=== PATIENT | female | born 1950 | race Caucasian/White ===

== ENCOUNTER → 2018-07-25 | Outpatient (CLI) | payer MEDICARE, BC ==
--- NOTE | 2018-07-25 12:11 | MM ---
Reason for exam: additional evaluation requested from prior study. Last mammogram was performed 1 year and 10 months ago. History: Patient is postmenopausal and has history of breast cancer at age 47. Family history of breast cancer in 2 aunts. Lumpectomy of the right breast, 1999. Took antineoplastic for 4 years beginning at age 47. Physical Findings: Nurse did not find any significant physical abnormalities on exam. MG 3D Diag Mammo W/Cad RADHA Bilateral CC and MLO view(s) were taken. Prior study comparison: September 20, 2016, bilateral MG 3d diag mammo w/cad RADHA. December 17, 2013, CAD bilateral diagnostic mammogram. The breast tissue is heterogeneously dense. This may lower the sensitivity of mammography. There are benign appearing round calcifications bilaterally. No suspicious abnormality. No significant new findings when compared with previous films. These results were verbally communicated with the patient and result sheet given to the patient on 07/25/18. ASSESSMENT: Benign, BI-RAD 2 RECOMMENDATION: Routine screening mammogram of both breasts in 1 year.
== END | disposition home or self-care (01) ==
LOC: RADMAMWWP 10:22
PROVIDERS: ATTEND Family Medicine
DX: R92.8 Other abnormal and inconclusive findings on diagnostic imaging of breast (principal)
CPT/HCPCS: 77066; G0279; 77062

== ENCOUNTER 2018-09-19 09:52 | Day surgery (SDC) | payer MEDICARE, BC ==
[2018-09-17 17:28] VITALS: BMI 26.5
[~2018-09-19 09:52] MED LIST: LACTATED RINGERS 1,000 ML IV SCH; LIDOCAINE 1% 20 ML VIAL (10MG/ML) FOR IV START INTRADERMA PRN
[2018-09-19 10:33] VITALS: RESP 16; TEMP 97.5
[2018-09-19] MEDS ORDERED: ONDANSETRON 4 MG/2 ML VIAL ONE (10:43)
[2018-09-19] MEDS ORDERED: PROPOFOL 10 MG/ML 20 ML VIAL IV ONE (10:43)
[2018-09-19] MEDS ORDERED: LIDOCAINE 1% INJ 10MG/ML (20 ML MDV) ONE (10:43)
--- NOTE | 2018-09-19 10:47 | P.GSHP ---
History of Present Illness H&P Date: 09/19/18 Chief Complaint: Colon cancer screening Patient here today for colonoscopy. Last colonoscopy approximately 10 years ago. No bowel related complaints. No family history of colon cancer. Past Medical History Past Medical History: Asthma, Cancer, GERD/Reflux, Hyperlipidemia, Hypertension Additional Past Medical History / Comment(s): BREAST CA 1999, TOOK TAMOXIFEN FOR 4 YEARS. VERTIGO EPISODE 2 MO AGO, TREATED & RESOLVED. OCC CRAMPING IN LEGS. History of Any Multi-Drug Resistant Organisms: None Reported Past Surgical History: Appendectomy, Breast Surgery Additional Past Surgical History / Comment(s): BREAST BIOPSIES. EXC CYST BEHIND LT EAR X2. COLONOSCOPY Past Anesthesia/Blood Transfusion Reactions: Previous Problems w/ Anesthesia, Postoperative Nausea & Vomiting (PONV) Additional Past Anesthesia/Blood Transfusion Reaction / Comment(s): "HARD TIME COMING OUT OF ANESTHESIA." Smoking Status: Former smoker - Past Family History Mother Family Medical History: No Reported History Medications and Allergies Home Medications Medication Instructions Recorded Confirmed Type B Complex & C No.20/Folic Acid 1 mg PO DAILY 09/17/18 09/19/18 History [Nephrocaps Softgel] Calcium/Magnesium/Zinc 1 each PO DAILY 09/17/18 09/19/18 History [Cijkfzb-Wggkoqqxc-Mxdw Tablet] Cholecalciferol [Vitamin D3] 2,000 unit PO DAILY 09/17/18 09/19/18 History Lansoprazole [Prevacid] 15 mg PO DAILY 09/17/18 09/19/18 History Lisinopril [Zestril] 10 mg PO DAILY 09/17/18 09/19/18 History Lovastatin [Mevacor] 20 mg PO DAILY 09/17/18 09/19/18 History Montelukast [Singulair] 10 mg PO DAILY 09/17/18 09/19/18 History Potassium 99 mg PO DAILY 09/17/18 09/19/18 History traMADol HCL [Ultram] 50 mg PO TID PRN 09/17/18 09/19/18 History Allergies Allergy/AdvReac Type Severity Reaction Status Date / Time No Known Allergies Allergy Verified 09/19/18 10:24 Surgical - Exam Vital Signs Temp Pulse Resp BP Pulse Ox 97.5 F L 79 16 171/84 99 09/19/18 10:32 09/19/18 10:32 09/19/18 10:32 09/19/18 10:32 09/19/18 10:32 Physical exam: General: Well-developed, well-nourished HEENT: Normocephalic, sclerae nonicteric Abdomen: Nontender, nondistended Extremities: No edema Neuro: Alert and oriented Assessment and Plan (1) Colon cancer screening Narrative/Plan: Will proceed with colonoscopy at this time Current Visit: Yes Status: Acute Code(s): Z12.11 - ENCOUNTER FOR SCREENING FOR MALIGNANT NEOPLASM OF COLON SNOMED Code(s): 429494777
--- NOTE | 2018-09-19 11:04 | P.PCN ---
Date of Procedure: 09/19/18 Procedure(s) Performed: PREOPERATIVE DIAGNOSIS: Colon cancer screening POSTOPERATIVE DIAGNOSIS: Small Rectal polyp PROCEDURE: Colonoscopy with biopsy ANESTHESIA: MAC SURGEON: Martinez Mortensen M.D. SPECIMENS: Polyp ENDOSCOPIC PROCEDURE: The patient was placed on the endoscopy table in the left decubitus position. The Olympus colonoscope was inserted into the anus and passed under direct visualization to the base of the cecum. The appendiceal orifice was visualized. From that point the scope was slowly withdrawn inspecting all surfaces carefully. There were no neoplastic inflammatory or polypoid lesions throughout the cecum, ascending, transverse, descending and sigmoid colon. In the rectum a small polyp was seen. This was removed using the cold biopsy forceps. The remainder the rectum appeared normal. There is no visible diverticulosis. Digital rectal examination was normal. The patient was taken to the recovery room in stable condition per anesthesia guidelines. RECOMMENDATIONS: Await biopsies results.
[2018-09-19 11:44] VITALS: BP 169/80; PULSE 70
== END 2018-09-19 11:58 | disposition home or self-care (01) ==
LOC: ORWHC2ENDO 09:52
PROVIDERS: ATTEND Surgery
DX: Z12.11 Encounter for screening for malignant neoplasm of colon (principal); K62.1 Rectal polyp; J45.909 Unspecified asthma, uncomplicated; K21.9 Gastro-esophageal reflux disease without esophagitis; E78.5 Hyperlipidemia, unspecified; I10 Essential (primary) hypertension; Z79.899 Other long term (current) drug therapy; Z85.3 Personal history of malignant neoplasm of breast; Z87.891 Personal history of nicotine dependence
CPT/HCPCS: 88305; 45380; J2405; J2001; J2704

== ENCOUNTER → 2019-10-31 | Outpatient (CLI) | payer MEDICARE ==
--- NOTE | 2019-10-31 12:14 | XR ---
EXAMINATION TYPE: XR lumbar spine 2 or 3V DATE OF EXAM: 10/31/2019 CLINICAL HISTORY: Back pain TECHNIQUE: Frontal and lateral images of the lumbar spine are obtained. COMPARISON: None FINDINGS: There are 5 lumbar type vertebral bodies identified. The lumbar spine shows satisfactory alignment without evidence of acute fracture or dislocation. Vertebral body heights and disk space he ights are within normal limits. Multilevel facet arthropathy is seen from L3 through S1. Very small m ultilevel anterior ossified. Contour abnormality of the left transverse process of L3 may represent old healed fracture deformity. No acute fracture seen. The overlying soft tissue appears unremarkable . IMPRESSION: 1. No acute fracture or malalignment is seen in the lumbar spine. 2. Mild multilevel degenerative disc disease of the lumbar spine.
--- NOTE | 2019-10-31 12:21 | XR ---
EXAMINATION TYPE: XR Hip Bilateral Complete DATE OF EXAM: 10/31/2019 CLINICAL HISTORY: Acute on chronic back and bilateral hip pain greater on the left than right. TECHNIQUE: AP and frogleg views of the bilateral hips were obtained. COMPARISON: None. FINDINGS: There is no acute fracture/dislocation evident in either hip. The femoral acetabular joint s maintain normal alignment. However there is mild bilateral acetabular sclerosis. No cam deformity i s seen of either femoral head neck junction. Femoral heads maintain a normal rounded contour. The ov erlying soft tissue appears unremarkable. IMPRESSION: There is no acute fracture or dislocation in either hip. Mild bilateral femoroacetabular arthropathy.
== END | disposition home or self-care (01) ==
LOC: RAD 11:14
PROVIDERS: ATTEND Family Medicine
DX: M51.36 Other intervertebral disc degeneration, lumbar region (principal); M12.852 Other specific arthropathies, not elsewhere classified, left hip; M12.851 Other specific arthropathies, not elsewhere classified, right hip
CPT/HCPCS: 72100; 73521

== ENCOUNTER 2022-06-13 06:07 | Observation (INO) | payer MEDICARE ==
--- NOTE | 2022-06-12 23:42 | HP ---
HISTORY AND PHYSICAL Surgery is 06/13/2022. HISTORY OF PRESENT ILLNESS: Josefina Robins is a 71-year-old patient, seen with symptomatic right hip osteoarthritis. We discussed options for treatment. She elected to proceed with direct anterior right total hip arthroplasty. Consent obtained. Clearance was provided by Dr. Eric Cooney. PAST MEDICAL HISTORY: Hypertension and hyperlipidemia. PAST SURGICAL HISTORY: Noncontributory. DAILY MEDICATIONS: 1. Lisinopril. 2. Lovastatin. ALLERGIES: None. SOCIAL HISTORY: She denies tobacco use. PHYSICAL EVALUATION OF THE RIGHT HIP: She has diffuse tenderness about the hip girdle, limited range of motion, severe pain. Positive hip impingement sign. Straight-leg raise negative. Distal neurovascular exam is intact. RADIOGRAPHS: Radiographs of the right hip revealed severe osteoarthritic changes. IMPRESSION: 1. Right hip osteoarthritis. 2. Hypertension. 3. Hyperlipidemia. PLAN: Direct anterior right total hip arthroplasty. MMODL / IJN: [id number] /
[~2022-06-13 06:07] MED LIST changes: +ACETAMINOPHEN TAB 500 MG TAB PO PRN; -LACTATED RINGERS 1,000 ML IV SCH; -LIDOCAINE 1% 20 ML VIAL (10MG/ML) FOR IV START INTRADERMA PRN; +MELOXICAM 7.5 MG TAB PO PRN; +TRANEXAMIC ACID IN NACL,ISO-OS 1,000 MG in SALINE 1 100ML.BAG IVPB PRN
[2022-06-13] MEDS ORDERED: DEXAMETHASONE SOD PHOSPHATE 4 MG/ML 1 ML VIAL IV ONE (06:10)
[2022-06-13] MEDS ORDERED: ONDANSETRON 4 MG/2 ML VIAL IVP ONE (06:10)
[2022-06-13] MEDS: LACTATED RINGERS 1,000 ML IV SCH ×3 (06:47→21:36)
[2022-06-13] MEDS ORDERED: MIDAZOLAM 2 MG/2 ML VIAL IV ONE (07:00)
[2022-06-13] MEDS ORDERED: DEXAMETHASONE SOD PHOSPHATE 4 MG/ML 1 ML VIAL ONE (07:23)
[2022-06-13] MEDS ORDERED: PHENYLEPHRINE-0.9% NACL SYG 1,000 MCG/10 ML SYRINGE ONE (07:23)
[2022-06-13] MEDS ORDERED: TRANEXAMIC ACID IN NACL,ISO-OS 1,000 MG/100 ML BAG ONE (07:23)
[2022-06-13] MEDS ORDERED: SODIUM CHLORIDE 0.9% (PF) 10 ML VIAL ONE (07:23)
[2022-06-13] MEDS ORDERED: ROPIVACAINE 5 MG/ML 30 ML VIAL ONE (07:23)
[2022-06-13] MEDS ORDERED: PROPOFOL 10 MG/ML 20 ML VIAL IV ONE (07:23)
[2022-06-13] MEDS ORDERED: MIDAZOLAM 2 MG/2 ML VIAL ONE (07:23)
[2022-06-13] MEDS ORDERED: ceFAZolin 1,000 MG in SODIUM CHLORIDE 0.9% 1,000 ML IRRIGATION ONE (08:00)
[2022-06-13] MEDS ORDERED: BUPIVACAIN-EPI 0.25%-1:200,000 30 ML VIAL SQ ONE (08:03)
[2022-06-13] MEDS ORDERED: LACTATED RINGERS 1,000 ML IV ONE (08:24)
--- NOTE | 2022-06-13 08:49 | P.ANPRN ---
Procedure Note - Anesthesia - Epidural/Spinal Spinal Time Out Performed: Yes Date of Procedure: 06/13/22 Procedure Start Time: 07:32 Procedure Stop Time: 07:37 Location of Patient: OR Sedation Type: Sedate with meaningful contact maintained Preparation: Sterile Prep Position: Sitting Needle Guage: 25 Injectate: Other (bupivacaine 0.75 % 1.2 ml) Blood Aspirated: No Pain Paresthesia on Injection Noted: No Events: Uneventful and Well Tolerated
--- NOTE | 2022-06-13 09:00 | FL ---
Intraoperative/procedural fluoroscopic services were provided. Total fluoroscopy time is 28 seconds w ith a total of 2 submitted images to PACS. Please see the operative/procedural note for further detai ls.
[2022-06-13] MEDS ORDERED: NALOXONE 0.4 MG/ML 1 ML VIAL IV PRN (09:21)
[2022-06-13] MEDS ORDERED: HYDROcodone/APAP 5-325MG 1 EACH TAB PO PRN (09:21)
[2022-06-13] MEDS ORDERED: HYDROmorphone 0.5 MG/0.5 ML SYRINGE IVP PRN ×2 (09:21)
[2022-06-13] MEDS ORDERED: ONDANSETRON 4 MG/2 ML VIAL IVP PRN (09:21)
--- NOTE | 2022-06-13 09:21 | P.OP ---
Date of Procedure: 06/13/22 Preoperative Diagnosis: Right hip osteoarthritis Postoperative Diagnosis: Right hip osteoarthritis Procedure(s) Performed: Direct anterior right total hip arthroplasty Implants: 1. Depuy Corail standard collar size 10 press-fit femoral stem 2. Depuy pinnacle 52 mm press-fit acetabular shell 3. Depuy pinnacle neutral polyethylene acetabular liner 36 mm ID 52 mm OD 4. Biolox delta ceramic femoral head +1.5 36 mm Anesthesia: regional (Erector spinae block), spinal Surgeon: Dajuan Rose Radioisotope Technician #1: Sebastian Akhtar Estimated Blood Loss (ml): 85 Pathology: other (femoral head) Condition: stable Disposition: PACU Indications for Procedure: 71-year-old patient seen with symptomatic right hip osteoarthritis. After having treatment options discussed, she elected to proceed with direct anterior right total hip arthroplasty. Operative Findings: see description of procedure Description of Procedure: The patient was taken to the operative suite. Patient underwent a spinal anesthetic by the department of anesthesia. Patient was then transferred to the [place] table. Patient was given preoperative IV antibiotics and TXA. Both lower extremities were placed in standard leg spars. The hip was then prepped and draped in the normal sterile orthopedic fashion. A standard anterior incision was made beginning 3 cm lateral and 1 cm distal to the ASIS extending 10 cm. Dissection was then carried down through the subcutaneous soft tissues down to the fascia overlying the tensor fascia jacklyn. An incision was now made through the fascia. Careful dissection was taken down exposing the tensor fascia jacklyn muscle. A Cobra retractor was now placed along the medial femoral neck and a second one along the lateral femoral neck. The venous circumflex vessels were now identified, cauterized and clipped. We identified the anterior hip capsule. An incision was made through the hip capsule along the lateral border. I performed a partial anterior capsulectomy. Retractors were now placed around the femoral neck itself. A femoral neck cut was now made with a sagittal saw. It was completed with an osteotome at the lateral neck area. The femoral head was now removed without difficulty. The extremity was now rotated to 60 of external rotation. It was locked in position. Residual labrum was now debrided out. Serial reaming was performed of the acetabulum while Moshe SOUTH assisted holding an anterior retractor for exposure. Once we reached the appropriate size and a trial was position and fit nicely. The appropriate size was now chosen opened and made available. It was introduced into the acetabulum without difficulty. The C-arm/fluoroscopy was now brought into the operative field. We made sure we had a true AP pelvic view. We now under direct C- arm/fluoroscopy introduced into the acetabular component with appropriate version and inclination. I held the cup in appropriate position well Moshe SOUTH used a mallet to seat the acetabular component. I noted the component now to be well seated and stable. Acetabular cup introduce her was removed. The C-arm was pulled back. An appropriate liner was introduced and clicked into position. It was felt to be stable. At this point retractors were removed. The extremity was now placed into 140 external rotation with no traction. The leg was now dropped to the ground and adducted. Appropriate retractors were now positioned along the proximal femur. We also placed our femoral look into position. Additional capsular releasing was performed to gain access to the proximal femur. We now used a box osteotome. A canal finder was now utilized. Serial broaching was now performed with the assistance of Moshe SOUTH tapping the broaches down with a mallet while held the broach in appropriate rotation and position. This was done until we reached the appropriate size with good overall rotational stability. Appropriate calcar planing was performed. A trial head/neck was placed into position. The hip was now reduced. The C- arm/fluoroscopy was brought back into the operative field. I obtained an AP pelvis was demonstrated adequate leg length alignment. The trial components appeared adequately position and sized. The C-arm/fluoroscopy was pulled back. Retractors were repositioned and the hip was dislocated. The leg was again taken down to the ground and adducted. Appropriate retractors were repositioned as well as the femoral hook. All trial components were removed. The femoral implant was opened along with the femoral head. The femoral implant was introduced on the appropriate handle into our pre-broached area. I held the component position well Moshe SOUTH used a mallet to seat the femoral component. The femoral component was now noted to be well seated and stable.. The femoral head was introduced with good positioning and fixation noted. Retractors were now removed. The hip was now reduced. There appeared be good positioning of the hip confirmed on intraoperative fluoroscopy. Spot films were obtained to document this. A second gram of TXA was given. The deep and superficial soft tissues were infiltrated with local analgesic. Bipolar cautery had been utilized intermittently through the procedure for hemostasis. The wound was irrigated copiously with pulse lavage mechanical irrigation. The fascia was repaired with Vicryl suture. The subcutaneous soft tissues were repaired in layers with Vicryl suture. The skin was approximated with pernio/Dermabond. Sterile dressings were applied. Patient was then awakened, transferred to a bed and taken to recovery in stable condition. Moshe SOUTH assisted with the complex procedure.
[2022-06-13] MEDS: HYDROmorphone 0.5 MG/0.5 ML SYRINGE IVP PRN ×6 (09:51→21:34)
[2022-06-13] MEDS: HYDROcodone/APAP 7.5-325MG 1 EACH TAB PO PRN ×3 (11:18→21:34)
[2022-06-13] MEDS: OXYBUTYNIN XL 5 MG TAB.ER.24 PO SCH (13:42)
[2022-06-13] MEDS: PANTOPRAZOLE 40 MG TABLET PO SCH (13:42)
[2022-06-13] MEDS ORDERED: MONTELUKAST 10 MG TAB PO SCH (21:00)
[2022-06-13] MEDS ORDERED: SENNOSIDES-DOCUSATE SODIUM 1 EACH TAB PO SCH (21:00)
--- NOTE | 2022-06-13 21:08 | P.ANPRN ---
Procedure Note - Anesthesia - Nerve Block Performed Right Erector Spinae Single Time Out Performed: Yes Date of Procedure: 06/13/22 Procedure Start Time: 07:00 Procedure Stop Time: 07:05 Location of Patient: PreOp Indication: Acute Post-Operative Pain, Requested by Surgeon Sedation Type: Sedate with meaningful contact maintained Preparation: Sterile Prep Position: Prone Needle Types: Pajunk Needle Gauge: 21 Ultrasound used to visualize needle placement: Yes Ultrasound used to observe medication spread: Yes Blood Aspirated: No Pain Paresthesia on Injection Noted: No Resistance on Injection: Normal Image Stored and Saved: Yes Events: Uneventful and Well Tolerated (ropi .5% 15cc plus dexamethasone 4mg plus ns 10cc given at L1)
[2022-06-14] MEDS: HYDROmorphone 0.5 MG/0.5 ML SYRINGE IVP PRN (03:22)
[2022-06-14] MEDS: HYDROcodone/APAP 7.5-325MG 1 EACH TAB PO PRN ×3 (03:23→13:47)
[2022-06-14] MEDS: LACTATED RINGERS 1,000 ML IV SCH ×2 (06:22→08:36)
[2022-06-14] MEDS: PANTOPRAZOLE 40 MG TABLET PO SCH (08:35)
[2022-06-14] MEDS: OXYBUTYNIN XL 5 MG TAB.ER.24 PO SCH (08:35)
[2022-06-14 08:45] VITALS: RESP 18
[2022-06-14 08:52] LABS: Basophils # (A) 0.01 X 10*3/uL (0.00-0.10); Basophils % (A) 0.1 %; Eosinophils # (A) 0 X 10*3/uL (0.04-0.35); Eosinophils % (A) 0 %; HCT 26.2 % (37.2-46.3); HGB 8.8 g/dL (12.0-15.0); Immature Grans, Automated 0.4 %; Lymphocytes # (A) 1.19 X 10*3/uL (0.90-5.00); Lymphocytes % (A) 8.6 %; MCH 29.1 pg (27.0-32.0); MCHC 33.6 g/dL (32.0-37.0); MCV 86.8 fL (80.0-97.0); Mean Platelet Volume 10.6 fL (9.5-12.2); Monocytes # (A) 1.08 X 10*3/uL (0.20-1.00); Monocytes % (A) 7.8 %; NRBC Per 100 WBC 0 /100 WBCS (0.0-0.0); Neutrophils # (A) 11.55 X 10*3/uL (1.80-7.70); Neutrophils % (A) 83.1 %; Platelet Count 214 X 10*3/uL (140-440); RBC 3.02 X 10*6/uL (4.10-5.20); WBC 13.89 X 10*3/uL (4.50-10.00)
[2022-06-14] MEDS ORDERED: ENOXAPARIN 40 MG/0.4 ML SYRINGE SQ SCH (09:00)
[2022-06-14] MEDS ORDERED: lisinopriL 10 MG TAB PO SCH (09:00)
[2022-06-14 09:10] LABS: African American GFR (CKD) 87.2 (60.0-200.0); BUN/Creat Ratio 17.5 Ratio (12.00-20.00); Calcium 8.8 mg/dL (8.7-10.3); Non-African American GFR(CKD) 75.2 (60.0-200.0); Potassium 4.4 mmol/L (3.5-5.5)
--- NOTE | 2022-06-14 10:30 | P.DS ---
Providers Date of admission: 06/14/22 07:45 Expected date of discharge: 06/14/22 Attending physician: Dajuan Rose Consults: 06/13/22 09:21 Consult Physician Routine Consulting Provider: Eric Cooney Reason/Comments: Medical management Do you want consulting provider notified?: Yes Primary care physician: Eric Cooney Hospital Course: Date of admission: 06/13/2022 Date of discharge: 06/14/2022 Admission diagnosis: Right hip osteoarthritis Discharge diagnosis: Same Attending physician: Dr. Rose Surgical procedures: Right total hip arthroplasty Brief history: Patient is a 71-year-old female with a history of progressive primary right hip osteoarthritis. At this point patient has failed conservative treatment measures and has opted to proceed with a elective right total hip arthroplasty. Hospital course: Details of patient's surgery can be found in operative report. Patient tolerated the procedure well and was subsequently transported to orthopedic floor. Patient's orthopeidc and medical care was provided daily. Patient had daily laboratory tests performed for evaluation of overall blood counts. Patient had daily physical therapy to include strengthening range of motion as well as education with walker ambulation. Patient was treated with Lovenox for their postoperative DVT prophylaxis during their inpatient stay. Patient was noted to have a relatively uneventful postoperative course. Patient reported satisfactory pain control with oral pain medications by postoperative day 1. Patient showed satisfactory progress with physical therapy. Patient moved steadily through the program and had no difficulty meeting the goals by postoperative day 1. Given patient's otherwise satisfactory course and having met physical therapy goals, plan is to discharge patient home with health services on postoperative day 1. Discharge condition/disposition: Patient will be discharged home with health se rvices in stable condition. Discharge medications: Instructions are given on resumption of patient's normal daily medications per primary care recommendation, in addition patient will be prescribed Hematite; Colace; Eliquis 2.5 mg BID x 2 weeks. Orthopedic Discharge Instructions: 1. Wound care and infection precautions, keep incision dry and covered while showering, no lotions, creams, moisturizers. No soaking, pools, hot tubs. Do not scrub over incision. 2. Weight-bear as tolerated with walker / cane until follow-up. 3. Ice and elevate when necessary. Do not exceed 20 minutes per hour with ice pack. 4. Utilize compression sleeve until seen at first follow up appointment. 5. Pain meds and anticoagulants per prescription. 6. Pain medication has potential to cause constipation. Increase oral fluid and fiber intake. Contact primary care provider if you have not had a bowel movement within 48 hours after discharge. 7. No anti-inflammatory medication until discussed at first post operative visit, this including Motrin, Aleve, Mobic, Diclofenac. 8. Follow up in office at 2 weeks postop with Moshe Akhtar PA-C / Javi Diaz PA-C 9. Follow up with your primary care doctor 7-10 days after discharge. 10. Contact [facility] with any questions, . Keep incision clean, dry, intact. While showering, cover dressing with Saran wrap. Silver foam dressing may be removed in 7 days, 06/20/2022 Medications: Hematite 5 mg/325 mg 12 every 6 hours; Colace; Eliquis 2.5 mg BID x 2 weeks; Ferrous sulfate 325 mg daily x 2 weeks Assessment: Right hip osteoarthritis Procedures: Right total hip arthroplasty Patient Condition at Discharge: Good Plan - Discharge Summary Discharge Rx Participant: Yes New Discharge Prescriptions: New Apixaban [Eliquis] 2.5 mg PO BID #60 tab HYDROcodone/APAP 5-325MG [Hematite 5-325] 1 - 2 tab PO Q6HR PRN #36 tab PRN Reason: Pain Docusate [Colace] 100 mg PO DAILY #30 capsule Ferrous Sulfate [Iron] 325 mg PO DAILY #14 tablet No Action Lansoprazole [Prevacid] 15 mg PO DAILY traMADol HCL [Ultram] 50 mg PO TID PRN PRN Reason: Pain Montelukast [Singulair] 10 mg PO DAILY Lovastatin [Mevacor] 20 mg PO DAILY lisinopriL [Zestril] 10 mg PO DAILY Multivit-Min/Folic Acid/Biotin [Hair, Skin and Nails Softgel] 133.3 mcg PO DAILY Oxybutynin Chloride [Ditropan XL] 5 mg PO DAILY Discharge Medication List Lansoprazole [Prevacid] 15 mg PO DAILY 09/17/18 [History] Lovastatin [Mevacor] 20 mg PO DAILY 09/17/18 [History] Montelukast [Singulair] 10 mg PO DAILY 09/17/18 [History] lisinopriL [Zestril] 10 mg PO DAILY 09/17/18 [History] traMADol HCL [Ultram] 50 mg PO TID PRN 09/17/18 [History] Multivit-Min/Folic Acid/Biotin [Hair, Skin and Nails Softgel] 133.3 mcg PO DAILY 06/10/22 [History] Oxybutynin Chloride [Ditropan XL] 5 mg PO DAILY 06/10/22 [History] Apixaban [Eliquis] 2.5 mg PO BID #60 tab 06/14/22 [Rx] Docusate [Colace] 100 mg PO DAILY #30 capsule 06/14/22 [Rx] Ferrous Sulfate [Iron] 325 mg PO DAILY #14 tablet 06/14/22 [Rx] HYDROcodone/APAP 5-325MG [Hematite 5-325] 1 - 2 tab PO Q6HR PRN #36 tab 06/14/22 [Rx] Follow up Appointment(s)/Referral(s): [facility], [NON-STAFF] - As Needed Eric Cooney DO [Primary Care Provider] - 1 Week [facility] [NON-STAFF] - As Needed (walker) Sebastian Akhtar PAC [PHYSICIAN INFORMATICS SPECIALIST] - 2 Weeks Patient Instructions/Handouts: Total Hip Replacement (DC) Activity/Diet/Wound Care/Special Instructions: Orthopedic Discharge Instructions: 1. Wound care and infection precautions, keep incision dry and covered while showering, no lotions, creams, moisturizers. No soaking, pools, hot tubs. Do not scrub over incision. 2. Weight-bear as tolerated with walker / cane until follow-up. 3. Ice and elevate when necessary. Do not exceed 20 minutes per hour with ice pack. 4. Utilize compression sleeve until seen at first follow up appointment. 5. Pain meds and anticoagulants per prescription. 6. Pain medication has potential to cause constipation. Increase oral fluid and fiber intake. Contact primary care provider if you have not had a bowel movement within 48 hours after discharge. 7. No anti-inflammatory medication until discussed at first post operative visit, this including Motrin, Aleve, Mobic, Diclofenac. 8. Follow up in office at 2 weeks postop with Moshe Akhtar PA-C / Javi Diaz PA-C 9. Follow up with your primary care doctor 7-10 days after discharge. 10. Contact [facility] with any questions, . Keep incision clean, dry, intact. While showering, cover dressing with Saran wrap. Silver foam dressing may be removed in 7 days, 06/20/2022 Medications: Hematite 5 mg/325 mg 12 every 6 hours; Colace; Eliquis 2.5 mg BID x 2 weeks; Ferrous Sulfate 325 mg daily x 2 weeks Discharge Disposition: HOME WITH HOME HEALTH SERVICES
--- NOTE | 2022-06-14 10:40 | P.PN ---
Subjective Progress Note Date: 06/14/22 Principal diagnosis: Right hip osteoarthritis Patient was seen at bedside this morning lying in semirecumbent position. Patient says she did work with physical therapy this morning. Patient says she was able to walk around the room with a walker and walk up and down steps. Jovanna diaz says she does not have a walker for home. Patient says she has not had bowel movement yet, however, patient says she has been passing gas. Patient says she has urinated several times since surgery yesterday. Patient denies chest pain, fever, shortness of breath, nausea, vomiting, change in vision, loss of bowel/bladder control. Objective - Vital Signs Vital signs: Vital Signs Temp 98.2 F 06/14/22 08:00 Pulse 93 06/14/22 08:00 Resp 18 06/14/22 08:00 BP 125/70 06/14/22 08:00 Pulse Ox 97 06/14/22 08:00 FiO2 Intake & Output 06/13/22 06/14/22 06/14/22 18:59 06:59 18:59 Intake Total 1501 1850 296 Output Total 85 1075 Balance 1416 775 296 Weight 61.6 kg Intake: IV 1501 Intake, IV Titration 930 Amount Lactated Ringers 1,000 ml 880 @ 80 mls/hr IV .[id number] [facility] Rx#:[id number] ceFAZolin 2 gm In Sodium 50 Chloride 0.9% 50 ml @ 100 mls/hr IVPB Q8H [facility] Rx#: [id number] Oral 920 296 Output: Urine 1075 Estimated Blood Loss 85 Other: Voiding Method Bedside Commode Toilet # Voids 2 1 - Exam Right hip: Incision is clean, dry, and intact. The silver foam dressing is in good condition. There is minimal soft tissue swelling and ecchymosis surrounding the medial and lateral aspects of the incision. Calf is soft, no tenderness with palpation. Plantar flexion, dorsiflexion, EHL, FHL are intact. Sensory exam to light touch throughout the extremity is intact, dorsal pedis pulses 2+. - Labs CBC & Chem 7: 06/14/22 05:41 06/14/22 05:41 Labs: Abnormal Lab Results - Last 24 Hours (Table) 06/14/22 06/14/22 Range/Units 05:41 05:41 WBC 13.89 H (4.50-10.00) X 10*3/uL RBC 3.02 L (4.10-5.20) X 10*6/uL Hgb 8.8 L (12.0-15.0) g/dL Hct 26.2 L (37.2-46.3) % Immature Gran # 0.06 H (0.00-0.04) X 10*3/uL Neutrophils # 11.55 H (1.80-7.70) X 10*3/uL Monocytes # 1.08 H (0.20-1.00) X 10*3/uL Eosinophils # 0 L (0.04-0.35) X 10*3/uL Anion Gap 9.00 L (10.00-18.00) mmol/L Glucose 133 H (70-110) mg/dL Assessment and Plan Assessment: 1. Right hip osteoarthritis Postoperative day 1 status post right total hip arthroplasty Plan: 1. Right hip osteoarthritis - right total hip arthroplasty performed yesterday, 06/13/2022. Patient stable biceps sprain. Prescription for walker was signed. Discharge home today with health services. 2. Appreciate medical management 3. Pain management - [place] 4. DVT prophylaxis - Eliquis 2.5 mg BID x 2 week once home 5. GI prophylaxis - Colace once home 6. PT/OT - weightbearing as tolerated with walker 7. Encourage incentive spirometer use 8. Discharge planning - home today with health services Time with Patient: Less than 30
--- NOTE | 2022-06-14 12:43 | P.CONS ---
History of Present Illness - Reason for Consult Consult date: 06/14/22 medical management of hypertension Requesting physician: Dajuan Rose - Chief Complaint Right hip osteoarthritis, status post surgical repair - History of Present Illness This is a pleasant 71-year-old female with past medical history of asthma, former nicotine dependence, occasional marijuana use, history of breast cancer, gastroesophageal reflux disease,PONV, hypertension, hyperlipidemia, osteoarthritis and multiple other medical issues presenting for elective anterior right total hip arthroplasty secondary to reported progressive symptomatic right hip osteoarthritis. Status post tract anterior right total hip arthroplasty, tolerated procedure well. Sitting up at bedside, reporting positive pain, participating with physical therapy. Denies chest pain, palpitations or shortness of breath. Denies cough congestion. Incentive spirometer up to 1999. Denies lightheadedness, dizziness or focal deficits. Denies nausea vomiting or diarrhea. No abdominal pain. Passing flatus. Afebrile, WBC 13.89. Electrolytes, renal function stable. Glucose 1:33. Vital signs stable, maintaining O2 sats in the high 90s on room air. Review of Systems ROS Statement: Those systems with pertinent positive or pertinent negative responses have been documented in the HPI. ROS Other: All systems not noted in ROS Statement are negative. Past Medical History Past Medical History: Asthma, Cancer, GERD/Reflux, Hyperlipidemia, Hypertension, Osteoarthritis (OA), Pneumonia Additional Past Medical History / Comment(s): hx. breast cancer 1999-had chemo, urinary frequency, bilat cataracts. History of Any Multi-Drug Resistant Organisms: None Reported Past Surgical History: Appendectomy, Breast Surgery Additional Past Surgical History / Comment(s): right side lumpectomy, lump removed from left side of neck x2, right JC (06/13/22) Past Anesthesia/Blood Transfusion Reactions: Postoperative Nausea & Vomiting (PONV) Additional Past Anesthesia/Blood Transfusion Reaction / Comm: hard time waking up Past Psychological History: No Psychological Hx Reported Smoking Status: Former smoker Past Alcohol Use History: Occasional Additional Past Alcohol Use History / Comment(s): quit smoking in her 40's, started @age of 11, didn't smoke daily Past Drug Use History: Marijuana Additional Drug Use History / Comment(s): occasional use - Past Family History Mother Family Medical History: No Reported History Medications and Allergies Home Medications Medication Instructions Recorded Confirmed Type Lansoprazole [Prevacid] 15 mg PO DAILY 09/17/18 06/10/22 History Lovastatin [Mevacor] 20 mg PO DAILY 09/17/18 06/10/22 History Montelukast [Singulair] 10 mg PO DAILY 09/17/18 06/10/22 History lisinopriL [Zestril] 10 mg PO DAILY 09/17/18 06/10/22 History traMADol HCL [Ultram] 50 mg PO TID PRN 09/17/18 06/10/22 History Multivit-Min/Folic Acid/Biotin 133.3 mcg PO DAILY 06/10/22 06/10/22 History [Hair, Skin and Nails Softgel] Oxybutynin Chloride [Ditropan XL] 5 mg PO DAILY 06/10/22 06/10/22 History Apixaban [Eliquis] 2.5 mg PO BID #60 tab 06/14/22 Rx Docusate [Colace] 100 mg PO DAILY #30 capsule 06/14/22 Rx Ferrous Sulfate [Iron] 325 mg PO DAILY #14 tablet 06/14/22 Rx HYDROcodone/APAP 5-325MG [[place] 1 - 2 tab PO Q6HR PRN #36 tab 06/14/22 Rx 5-325] Allergies Allergy/AdvReac Type Severity Reaction Status Date / Time No Known Allergies Allergy Verified 06/13/22 06:20 Physical Exam Vitals: Vital Signs Temp Pulse Pulse Resp BP Pulse Ox 06/14/22 08:00 98.2 F 93 18 125/70 97 06/14/22 02:51 98.5 F 74 15 124/67 96 06/13/22 20:00 98.2 F 70 16 144/73 97 06/13/22 14:00 96.7 F L 62 17 120/79 93 L 06/13/22 12:46 71 116/64 94 L 06/13/22 12:32 53 L 123/60 96 06/13/22 12:16 67 143/85 99 Intake and Output 06/13/22 06/14/22 06/14/22 22:59 06:59 14:59 Intake Total 120 1730 296 Output Total 225 850 Balance -105 880 296 Intake: Intake, IV Titration 930 Amount Lactated Ringers 1,000 ml 880 @ 80 mls/hr IV .[id number] [facility] Rx#:[id number] ceFAZolin 2 gm In Sodium 50 Chloride 0.9% 50 ml @ 100 mls/hr IVPB Q8H [facility] Rx#: [id number] Oral 120 800 296 Output: Urine 225 850 Other: Voiding Method Toilet # Voids 2 1 PHYSICAL EXAM: VITAL SIGNS: [As above] GENERAL: Sitting up in bed, no acute distress HEENT: Conjunctivae normal. eyes normal. MMM. NECK: Supple,No JVD. No thyroid enlargement. No LNs CARDIOVASCULAR: S1, S2 regular. No murmur RESPIRATION: Unlabored, Breath sounds diminished in the bases. No rhonchi or crackles. No bronchial breathing. ABDOMEN: Soft, nondistended, nontender . No guarding. no masses palpable. No ascites, No hepatosplenomegaly.Bowel sounds heard. LEGS: Right lower extremity, anterior dressing, clean dry and intact, minimal edema/ecchymosis. No clubbing, no cyanosis.No calf tenderness. Positive DP pulse. PSYCHIATRY: Alert and oriented X3, mood and affect normal. NERVOUS SYSTEM: Cranial N 2-12 grossly normal. Moves all 4 limbs. No focal deficits. Strength and sensation grossly intact. Skin: Warm and dry, no rash Results CBC & Chem 7: 06/14/22 05:41 06/14/22 05:41 Labs: Abnormal Lab Results - Last 24 Hours (Table) 06/14/22 06/14/22 Range/Units 05:41 05:41 WBC 13.89 H (4.50-10.00) X 10*3/uL RBC 3.02 L (4.10-5.20) X 10*6/uL Hgb 8.8 L (12.0-15.0) g/dL Hct 26.2 L (37.2-46.3) % Immature Gran # 0.06 H (0.00-0.04) X 10*3/uL Neutrophils # 11.55 H (1.80-7.70) X 10*3/uL Monocytes # 1.08 H (0.20-1.00) X 10*3/uL Eosinophils # 0 L (0.04-0.35) X 10*3/uL Anion Gap 9.00 L (10.00-18.00) mmol/L Glucose 133 H (70-110) mg/dL Assessment and Plan Assessment: Symptomatic right hip osteoarthritis, status post tract anterior right total hip arthroplasty PONV, history of History of chronic ALLERGY induced asthma, stable Gastroesophageal reflux disease, on PPI Borderline new-onset diabetes mellitus, hemoglobin A1c 6.1 in 12/07, further diabetic education/ recommendations as PCP at follow-up visit Hypertension Hyperlipidemia Former nicotine dependence History of breast cancer Plan: Continue on current medication regime ,monitoring and symptomatic treatment. Aggressive pulmonary toileting with incentive spirometer reinforced. Home meds reviewed and resumed accordingly. Currently on Lovenox for DVT prophylaxis and PPI for GI prophylaxis. Pain management as per primary. PT. Follow-up with PCP in one week. Thank you for the consult, Dr. Rose. The impression and plan of care has been dictated as directed. : I performed a history and examination of this patient, discussed the same with the dictator. I agree with the dictator's note ,documented as a scribe. Any additional findings or plans will be noted.
[2022-06-14 13:23] VITALS: BP 147/68; PULSE 84; TEMP 98.4
== END 2022-06-14 14:53 | disposition home health service (06) ==
LOC: OR 06:07 → 4SSUR 09:15 → OR 06-14 07:45 → 4SSUR 06-14 07:45
PROVIDERS: ADMIT Orthopaedic Surgery; ATTEND Orthopaedic Surgery
DX: M16.11 Unilateral primary osteoarthritis, right hip (principal); I10 Essential (primary) hypertension; E78.5 Hyperlipidemia, unspecified; K21.9 Gastro-esophageal reflux disease without esophagitis; J45.909 Unspecified asthma, uncomplicated; R35.0 Frequency of micturition; R73.03 Prediabetes; Z85.3 Personal history of malignant neoplasm of breast; Z98.890 Other specified postprocedural states; Z87.891 Personal history of nicotine dependence; Z87.01 Personal history of pneumonia (recurrent); Z90.49 Acquired absence of other specified parts of digestive tract; Z92.21 Personal history of antineoplastic chemotherapy; Z98.42 Cataract extraction status, left eye; Z98.41 Cataract extraction status, right eye; Z79.899 Other long term (current) drug therapy
CPT/HCPCS: 97116; 97161; 97530; 97535; 97165; 64999; 76942; 86900; 86901; 80048; 85025; 86850; 88300; 73501; 27130; G0378; C1776; J2250; J1100; J0690 ×2; J2405; J1650; J2795; J2370; J2704; J1170 ×2

== ENCOUNTER 2023-01-04 16:59 | Observation (INO) | payer MEDICARE ==
--- NOTE | 2023-01-04 17:21 | ED ---
GI Bleed HPI <Ondina Schulte - Last Filed: 01/04/23 17:15> <Nola De La Garza - Last Filed: 01/04/23 22:55> - General Chief complaint: GI Bleed Stated complaint: GI bleed - History of Present Illness Initial comments: Patient is a 72 years old female presenting to the ER with complaints of having diarrhea and vomiting which began yesterday then noticed bright red blood in her stool today with continued diarrhea. She denies vomiting today. She reports abdominal cramping but no abdominal tenderness. She has generalized malaise. She reports fevers and chills yesterday with low grade but denies any today. She denies any chest pain, shortness of breath, dysuria, weakness or other complaints or concerns at this time. (Ondina Schulte) I agree with the above HPI. She reports bright red streaking of blood in her stoo. Patient does not use blood thinners. Denies history of GI bleed. Last colonoscopy was 2 years ago which patient states was normal. (Nola De La Garza) - Related Data Home Medications Medication Instructions Recorded Confirmed Lovastatin [Mevacor] 20 mg PO DAILY 09/17/18 01/04/23 Montelukast [Singulair] 10 mg PO DAILY 09/17/18 01/04/23 lisinopriL [Zestril] 10 mg PO DAILY 09/17/18 01/04/23 traMADol HCL [Ultram] 50 mg PO BID 09/17/18 01/04/23 Carboxymethylcellulose Sodium 1 drop BOTH EYES DAILY 01/04/23 01/04/23 [Refresh Tears] Oxybutynin Chloride [Ditropan] 5 mg PO DAILY 01/04/23 01/04/23 Vitamin C/Biotin [Hair, Skin and 1 tab PO DAILY 01/04/23 01/04/23 Nails Chew] Allergies Allergy/AdvReac Type Severity Reaction Status Date / Time No Known Allergies Allergy Verified 01/04/23 20:02 Review of Systems ROS Other: All systems not noted in ROS Statement are negative. <Ondina Schulte - Last Filed: 01/04/23 17:15> ROS Other: All systems not noted in ROS Statement are negative. <Nola De La Garza - Last Filed: 01/04/23 22:55> ROS Statement: Those systems with pertinent positive or pertinent negative responses have been documented in the HPI. Past Medical History Past Medical History: Asthma, Cancer, GERD/Reflux, Hyperlipidemia, Hypertension, Osteoarthritis (OA), Pneumonia Additional Past Medical History / Comment(s): hx. breast cancer 1999-had chemo, urinary frequency, bilat cataracts. History of Any Multi-Drug Resistant Organisms: None Reported Past Surgical History: Appendectomy, Breast Surgery Additional Past Surgical History / Comment(s): right side lumpectomy, lump removed from left side of neck x2, right JC (06/13/22) Past Anesthesia/Blood Transfusion Reactions: Postoperative Nausea & Vomiting (PONV) Additional Past Anesthesia/Blood Transfusion Reaction / Comment(s): hard time waking up Past Psychological History: No Psychological Hx Reported Smoking Status: Former smoker Past Alcohol Use History: Occasional Additional Past Alcohol Use History / Comment(s): quit smoking in her 40's, started @age of 11, didn't smoke daily Past Drug Use History: Marijuana Additional Drug Use History / Comment(s): occasional use - Past Family History Mother Family Medical History: No Reported History <Ondina Schulte - Last Filed: 01/04/23 17:15> General Exam <Ondina Schulte - Last Filed: 01/04/23 17:15> General appearance: alert, in no apparent distress Respiratory exam: Present: normal lung sounds bilaterally. Absent: respiratory distress, wheezes, rales, rhonchi, stridor Cardiovascular Exam: Present: regular rate, normal rhythm, normal heart sounds. Absent: systolic murmur, diastolic murmur, rubs, gallop, clicks GI/Abdominal exam: Present: soft, tenderness (LLQ), normal bowel sounds. Absent: distended, guarding, rebound, rigid Rectal exam: Present: normal rectal tone, heme (+) stool. Absent: hemorrhoids Neurological exam: Present: alert, oriented X3, CN II-XII intact Psychiatric exam: Present: normal affect, normal mood Skin exam: Present: warm, dry, intact, normal color. Absent: rash <Nola De La Garza - Last Filed: 01/04/23 22:55> - General Exam Comments Initial Comments: Visual Physical Exam Vital signs reviewed General: Well-appearing, nontoxic, no acute distress. Head: Normocephalic, atraumatic Eyes: PERRLA, EOMI ENT: Airway patent Chest: Nonlabored breathing Skin: No visual rash, normal skin tone Neuro: Alert and oriented 3 Musculoskeletal: No gross abnormalities (Ondina Schulte) Course Vital Signs 01/04/23 01/04/23 19:28 22:04 Temperature 98.4 F Pulse Rate 97 82 Respiratory 20 16 Rate Blood Pressure 158/92 144/82 O2 Sat by Pulse 98 97 Oximetry Medical Decision Making - Lab Data Result diagrams: 01/04/23 20:11 01/04/23 20:11 <Nola De La Garza - Last Filed: 01/04/23 22:55> - Medical Decision Making Was pt. sent in by a medical professional or institution (Dr. PA, MEDICAL HISTORIAN, urgent care, hospital, or jail...) When possible be specific @ -[No] Did you speak to anyone other than the patient for history (EMS, parent, family, police, friend...)? What history was obtained from this source @ -[No] Did you review nursing and triage notes (agree or disagree)? Why? @ -[I reviewed and agree with nursing and triage notes] Were old charts reviewed (outside hosp., previous admission, EMS record, old EKG, old radiological studies, urgent care reports/EKG's, jail records)? Report findings @ -[No old charts were reviewed] Differential Diagnosis (chest pain, altered mental status, abdominal pain women, abdominal pain men, vaginal bleeding, weakness, fever, dyspnea, syncope, headache, dizziness, GI bleed, back pain, seizure, CVA, palpatations, mental health)? @ -Differential Abdominal Pain Women: Appendicitis, Cholecystitis, diverticulosis, ischemic bowel, pancreatitis, hepatitis, UTI, gastroenteritis, AAA, incarcerated hernia, bowel obstruction, constipation, inflammatory bowel, hepatitis, peptic ulcer disease, splenic infarction, perforated viscus, vulvitis, ovarian torsion, PID, kidney stone, placenta abruption, this is not meant to be an all-inclusive list EKG interpreted by me (3pts min.). @ -[As above] X-rays interpreted by me (1pt min.). @ -[None done] CT interpreted by me (1pt min.). @ -Yes, CT of the abdomen and pelvis shows colitis involving the transverse colon and descending colon. No evidence of organizing fluid collection or perforation U/S interpreted by me (1pt. min.). @ -[None done] What testing was considered but not performed or refused? (CT, X-rays, U/S, labs)? Why? @ -[None] What meds were considered but not given or refused? Why? @ -[None] Did you discuss the management of the patient with other professionals (professionals i.e. , PA, MEDICAL HISTORIAN, lab, RT, psych nurse, social media marketer, plastics nurse, teacher, geospatial program management officer, telephonic case manager)? Give summary @ -[No] Was smoking cessation discussed for >3mins.? @ -[No] Was critical care preformed (if so, how long)? @ -[No] Were there social determinants of health that impacted care today? How? (Homelessness, low income, unemployed, alcoholism, drug addiction, transportation, low edu. Level, literacy, decrease access to med. care, residential, rehab)? @ -[No] Was there de-escalation of care discussed even if they declined (Discuss DNR or withdrawal of care, Hospice)? DNR status @ -[No] What co-morbidities impacted this encounter? (DM, HTN, Smoking, COPD, CAD, Cancer, CVA, ARF, Chemo, Hep., AIDS, mental health diagnosis, sleep apnea, morb id obesity)? @ -[None] Was patient admitted / discharged? Hospital course, mention meds given and route, prescriptions, significant lab abnormalities, going to OR and other pertinent info. @ -Patient presenting with abdominal pain. Afebrile. The abdomen is soft. There is tenderness in the left lower quadrant. Rectal exam reveals no active bleeding. There is gross blood. There is significant leukocytosis at 24.2. CT of abdomen and pelvis with contrast shows colitis of the transverse and descending colon without evidence of abscess. Pain and nausea controlled. IV abx started. Results discussed with patient who agrees to admission. Case discussed with Dr. Cooney who accepts admission GI on consult Undiagnosed new problem with uncertain prognosis? @ -[No] Drug Therapy requiring intensive monitoring for toxicity (Heparin, Nitro, Insulin, Cardizem)? @ -[No] Were any procedures done? @ -[No] Diagnosis/symptom? @ -colitis Acute, or Chronic, or Acute on Chronic? @ -acute Uncomplicated (without systemic symptoms) or Complicated (systemic symptoms)? @ uncomplicated Side effects of treatment? @ -[No] Exacerbation, Progression, or Severe Exacerbation? @ -[No] Poses a threat to life or bodily function? How? (Chest pain, [place], [place], pneumonia, PE, COPD, DKA, ARF, appy, cholecystitis, CVA, Diverticulitis, Homicidal, Suicidal, threat to staff... and all critical care pts) @ -yes Dr. Garay is my attending (Nola De La Garza) - Lab Data Lab Results 01/04/23 01/04/23 01/04/23 Range/Units 20:11 20:11 20:11 WBC 24.2 H (3.8-10.6) k/uL RBC 4.71 (3.80-5.40) m/uL Hgb 13.2 (11.4-16.0) gm/dL Hct 40.7 (34.0-46.0) % MCV 86.4 (80.0-100.0) fL MCH 28.0 (25.0-35.0) pg MCHC 32.4 (31.0-37.0) g/dL RDW 13.6 (11.5-15.5) % Plt Count 324 (150-450) k/uL MPV 7.1 Neutrophils % 89 % Lymphocytes % 5 % Monocytes % 4 % Eosinophils % 2 % Basophils % 0 % Neutrophils # 21.6 H (1.3-7.7) k/uL Lymphocytes # 1.2 (1.0-4.8) k/uL Monocytes # 0.8 (0-1.0) k/uL Eosinophils # 0.4 (0-0.7) k/uL Basophils # 0.0 (0-0.2) k/uL PT (9.0-12.0) sec INR (<1.2) APTT (22.0-30.0) sec Sodium 135 L (137-145) mmol/L Potassium 3.8 (3.5-5.1) mmol/L Chloride 98 (98-107) mmol/L Carbon Dioxide 29 (22-30) mmol/L Anion Gap 8 mmol/L BUN 16 (7-17) mg/dL Creatinine 0.76 (0.52-1.04) mg/dL Est GFR (CKD-EPI)AfAm >90 (>60 ml/min/1.73 sqM) Est GFR (CKD-EPI)NonAf 80 (>60 ml/min/1.73 sqM) Glucose 114 H (74-99) mg/dL Calcium 8.9 (8.4-10.2) mg/dL Total Bilirubin 0.8 (0.2-1.3) mg/dL AST 19 (14-36) U/L ALT 17 (4-34) U/L Alkaline Phosphatase 61 (38-126) U/L Total Protein 6.5 (6.3-8.2) g/dL Albumin 4.0 (3.5-5.0) g/dL Stool Occult Blood Positive H (Negative) 01/04/23 Range/Units 20:11 WBC (3.8-10.6) k/uL RBC (3.80-5.40) m/uL Hgb (11.4-16.0) gm/dL Hct (34.0-46.0) % MCV (80.0-100.0) fL MCH (25.0-35.0) pg MCHC (31.0-37.0) g/dL RDW (11.5-15.5) % Plt Count (150-450) k/uL MPV Neutrophils % % Lymphocytes % % Monocytes % % Eosinophils % % Basophils % % Neutrophils # (1.3-7.7) k/uL Lymphocytes # (1.0-4.8) k/uL Monocytes # (0-1.0) k/uL Eosinophils # (0-0.7) k/uL Basophils # (0-0.2) k/uL PT 10.7 (9.0-12.0) sec INR 1.0 (<1.2) APTT 22.9 (22.0-30.0) sec Sodium (137-145) mmol/L Potassium (3.5-5.1) mmol/L Chloride (98-107) mmol/L Carbon Dioxide (22-30) mmol/L Anion Gap mmol/L BUN (7-17) mg/dL Creatinine (0.52-1.04) mg/dL Est GFR (CKD-EPI)AfAm (>60 ml/min/1.73 sqM) Est GFR (CKD-EPI)NonAf (>60 ml/min/1.73 sqM) Glucose (74-99) mg/dL Calcium (8.4-10.2) mg/dL Total Bilirubin (0.2-1.3) mg/dL AST (14-36) U/L ALT (4-34) U/L Alkaline Phosphatase (38-126) U/L Total Protein (6.3-8.2) g/dL Albumin (3.5-5.0) g/dL Stool Occult Blood (Negative) Disposition <Ondina Schulte - Last Filed: 01/04/23 17:15> <Nola De La Garza - Last Filed: 01/04/23 22:55> Clinical Impression: Colitis Disposition: ADMITTED IP TO THIS HOSP Condition: Good Referrals: Eric Cooney DO [Primary Care Provider] - 1-2 days
[2023-01-04] MEDS ORDERED: SODIUM CHLORIDE 0.9% 1,000 ML IV STA ×2 (19:50→22:54)
[2023-01-04] MEDS ORDERED: HYDROmorphone 0.5 MG/0.5 ML SYRINGE IVP STA (20:05)
[2023-01-04] MEDS ORDERED: ONDANSETRON 4 MG/2 ML VIAL IVP STA (20:05)
[2023-01-04] MEDS ORDERED: PANTOPRAZOLE 40 MG/10 ML VIAL IVP STA (20:05)
[2023-01-04 20:30] LABS: Basophils % (A) 0 %; Eosinophils # (A) 0.4 k/uL (0-0.7); Eosinophils % (A) 2 %; HCT 40.7 % (34.0-46.0); HGB 13.2 gm/dL (11.4-16.0); Lymphocytes # (A) 1.2 k/uL (1.0-4.8); Lymphocytes % (A) 5 %; MCHC 32.4 g/dL (31.0-37.0); MCV 86.4 fL (80.0-100.0); Mean Platelet Volume 7.1; Monocytes # (A) 0.8 k/uL (0-1.0); Monocytes % (A) 4 %; Neutrophils # (A) 21.6 k/uL (1.3-7.7); Neutrophils % (A) 89 %; Platelet Count 324 k/uL (150-450); RBC 4.71 m/uL (3.80-5.40); RDW 13.6 % (11.5-15.5); WBC 24.2 k/uL (3.8-10.6)
[2023-01-04 20:35] LABS: Partial Thromboplastin Time 22.9 sec (22.0-30.0); Prothrombin Time 10.7 sec (9.0-12.0)
[2023-01-04 20:41] LABS: ALT 17 U/L (4-34); AST 19 U/L (14-36); African American GFR (CKD) >90 (>60 ml/min/1.73 sqM); Alkaline Phosphatase 61 U/L (38-126); Anion Gap 8 mmol/L; Blood Urea Nitrogen 16 mg/dL (7-17); Calcium 8.9 mg/dL (8.4-10.2); Carbon Dioxide 29 mmol/L (22-30); Chloride 98 mmol/L (98-107); Glucose 114 mg/dL (74-99); Non-African American GFR(CKD) 80 (>60 ml/min/1.73 sqM); Potassium 3.8 mmol/L (3.5-5.1); Sodium 135 mmol/L (137-145); Total Bilirubin 0.8 mg/dL (0.2-1.3); Total Protein 6.5 g/dL (6.3-8.2)
--- NOTE | 2023-01-04 21:36 | CT ---
EXAMINATION TYPE: CT abdomen pelvis w con CT DLP: 719.5 mGycm, Automated exposure control for dose reduction was used. DATE OF EXAM: 01/04/2023 9:07 PM COMPARISON: None CLINICAL INDICATION:Female, 72 years old with history of LLQ pain; LLQ pain and blood in stool TECHNIQUE: Axial CT of the abdomen and pelvis. Sagittal and coronal reformats were created on a [employer] workstation. Contrast used:100 mL of Isovue 370 with IV Contrast, Oral contrast used: without Oral Contrast FINDINGS: LOWER CHEST: Unremarkable ABDOMEN LIVER: Scattered simple appearing hepatic cyst. GALLBLADDER AND BILE DUCTS: Fundal adenomyomatosis. PANCREAS: Unremarkable. SPLEEN: Unremarkable. ADRENAL GLANDS: Unremarkable. KIDNEYS AND URETERS: No evidence of hydronephrosis or renal calculus. The ureters are unremarkable. PELVIS BLADDER: Unremarkable REPRODUCTIVE: pessary ring is present. ABDOMEN & PELVIS STOMACH AND BOWEL: Circumferential wall thickening starting from the mid transverse colon measuring u p to 16 mm in thickness and extending to the sigmoid colon. No evidence for pneumoperitoneum or fluid collection. Vasculature to this region off the superior mesenteric artery appears patent. PERITONEUM/RETROPERITONEUM: No evidence of pneumoperitoneum. Trace free fluid in the pelvis VASCULATURE: No evidence of aortic aneurysm. MUSCULOSKELETAL: No acute osseous abnormalities, right hip arthroplasty with hardware appearing intac t. No acute osseous pathology. LYMPH NODES: No gross evidence for lymphadenopathy. SOFT TISSUE/ABDOMINAL WALL: Unremarkable IMPRESSION: 1. Colitis involving the transverse and descending colon. No evidence of organizing fluid collection or perforation. 2. Trace fluid in the pelvis, likely secondary to #1. 3. Pessary ring is present. 4. Simple appearing hepatic cyst.
[2023-01-04] MEDS ORDERED: NALOXONE 0.4 MG/ML 1 ML VIAL IV PRN (22:19)
[2023-01-04] MEDS ORDERED: metroNIDAZOLE-NS PMX 500 MG in SALINE 1 100ML.BAG IVPB STA (22:22)
[2023-01-04] MEDS ORDERED: LEVOFLOXACIN 500MG-D5W PMX 500 MG in DEXTROSE/WATER 1 100ML.BAG IVPB STA (22:22)
[2023-01-05] MEDS ORDERED: ONDANSETRON 4 MG/2 ML VIAL IVP PRN (06:57)
[2023-01-05] MEDS: HYDROmorphone 0.5 MG/0.5 ML SYRINGE IVP PRN ×2 (09:00→17:29)
[2023-01-05] MEDS: PANTOPRAZOLE 40 MG/10 ML VIAL IVP SCH (09:01)
[2023-01-05 09:11] LABS: Basophils % (A) 0 %; Eosinophils # (A) 0.2 k/uL (0-0.7); Eosinophils % (A) 1 %; HCT 36.6 % (34.0-46.0); HGB 12.2 gm/dL (11.4-16.0); Lymphocytes # (A) 1.1 k/uL (1.0-4.8); Lymphocytes % (A) 5 %; MCH 28.8 pg (25.0-35.0); MCHC 33.3 g/dL (31.0-37.0); MCV 86.5 fL (80.0-100.0); Mean Platelet Volume 7.3; Monocytes # (A) 0.5 k/uL (0-1.0); Monocytes % (A) 2 %; Neutrophils % (A) 90 %; Platelet Count 265 k/uL (150-450); RBC 4.23 m/uL (3.80-5.40); RDW 13.7 % (11.5-15.5)
[2023-01-05 09:23] LABS: African American GFR (CKD) >90 (>60 ml/min/1.73 sqM); Anion Gap 6 mmol/L; Blood Urea Nitrogen 10 mg/dL (7-17); Calcium 8.2 mg/dL (8.4-10.2); Carbon Dioxide 24 mmol/L (22-30); Chloride 104 mmol/L (98-107); Glucose 98 mg/dL (74-99); Non-African American GFR(CKD) 89 (>60 ml/min/1.73 sqM); Potassium 3.7 mmol/L (3.5-5.1); Sodium 134 mmol/L (137-145)
[2023-01-05] MEDS ORDERED: DEXTROSE 50% SYRINGE 50 ML IVP PRN ×2 (10:56)
[2023-01-05] MEDS: PIPERACILLIN-TAZOBACTAM 3.375 GM in SODIUM CHLORIDE 0.9% 100 ML IVPB SCH ×3 (11:08→23:59)
--- NOTE | 2023-01-05 11:13 | P.HPIM ---
History of Present Illness H&P Date: 01/05/23 Chief Complaint: Abdominal cramping, diarrhea, rectal bleeding This is a pleasant 72-year-old female with past medical history of asthma, former nicotine dependence, occasional marijuana use, history of breast cancer, gastroesophageal reflux disease,PONV, hypertension, hyperlipidemia, osteoarthritis and multiple other medical issues presented to the ER with complaints of nausea, vomiting, diarrhea with bright red blood "streaks" in her stools since yesterday, accompanied by abdominal cramping, low-grade fevers and chills. Denies any chest pain, palpitations or shortness of breath. Denies any lightheadedness, dizziness or focal deficits. Denies syncope. Reports her last colonoscopy was approximately 2 years ago and stated normal. Denies prior history of colitis.CT of abdomen and pelvis reported colitis involving the transverse and descending colon with no evidence of organizing fluid collection or perforation, trace fluid in the pelvis, pessary ring present, simple- appearing hepatic cyst. Afebrile, WBC decreased from 24.2-20, hemoglobin 12.2, platelets 265, sodium 134, potassium 3.7, bicarb 24, BUN 10, creatinine 0.69. LFTs within normal limits .Stool for occult blood positive. Received IV antiemetics, IV fluid hydration and IV antibiotics of Levaquin and Flagyl. Pain management with hydromorphone. Vital signs stable, maintaining O2 sats in the high 90s on room air. Review of Systems ROS Statement: Those systems with pertinent positive or pertinent negative responses have been documented in the HPI. ROS Other: All systems not noted in ROS Statement are negative. Past Medical History Past Medical History: Asthma, Cancer, GERD/Reflux, Hyperlipidemia, Hypertension, Osteoarthritis (OA), Pneumonia Additional Past Medical History / Comment(s): hx. breast cancer with a lumpectomy on right side in 1999-had po chemo, urinary frequency, bilat cataracts with sx. History of Any Multi-Drug Resistant Organisms: None Reported Past Surgical History: Appendectomy, Breast Surgery, Joint Replacement Additional Past Surgical History / Comment(s): right side lumpectomy, lump removed from left side of neck x2, right JC (06/13/22) Past Anesthesia/Blood Transfusion Reactions: Postoperative Nausea & Vomiting (PONV) Additional Past Anesthesia/Blood Transfusion Reaction / Comment(s): hard time waking up Past Psychological History: No Psychological Hx Reported Smoking Status: Former smoker Past Alcohol Use History: Occasional Additional Past Alcohol Use History / Comment(s): quit smoking in her 40's, started @age of 11, didn't smoke daily Past Drug Use History: Marijuana Additional Drug Use History / Comment(s): occasional use not recent - Past Family History Mother Family Medical History: No Reported History Father Family Medical History: No Reported History Medications and Allergies Home Medications Medication Instructions Recorded Confirmed Type Lovastatin [Mevacor] 20 mg PO DAILY 09/17/18 01/04/23 History Montelukast [Singulair] 10 mg PO DAILY 09/17/18 01/04/23 History lisinopriL [Zestril] 10 mg PO DAILY 09/17/18 01/04/23 History traMADol HCL [Ultram] 50 mg PO BID 09/17/18 01/04/23 History Carboxymethylcellulose Sodium 1 drop BOTH EYES DAILY 01/04/23 01/04/23 History [Refresh Tears] Oxybutynin Chloride [Ditropan] 5 mg PO DAILY 01/04/23 01/04/23 History Vitamin C/Biotin [Hair, Skin and 1 tab PO DAILY 01/04/23 01/04/23 History Nails Chew] Allergies Allergy/AdvReac Type Severity Reaction Status Date / Time No Known Allergies Allergy Verified 01/04/23 20:02 Physical Exam Vitals: Vital Signs Temp Pulse Pulse Resp BP BP Pulse Ox 01/05/23 07:00 98.2 F 80 18 164/81 99 01/05/23 02:47 98.5 F 93 18 132/71 97 01/05/23 00:36 98.3 F 78 18 135/80 98 01/04/23 22:04 82 16 144/82 97 01/04/23 19:28 98.4 F 97 20 158/92 98 Intake and Output 01/04/23 01/05/23 01/05/23 22:59 06:59 14:59 Other: # Voids 1 # Bowel Movements 1 Weight 63.503 kg 63.503 kg PHYSICAL EXAM: VITAL SIGNS: [As above] GENERAL: Sitting up in bed, no acute distress HEENT: Conjunctivae normal. eyes normal. NECK: Supple,No JVD. No thyroid enlargement. No LNs CARDIOVASCULAR: S1, S2 regular. No murmur RESPIRATION: Unlabored, Breath sounds diminished in the bases. No rhonchi or crackles. No bronchial breathing. ABDOMEN: Soft, nondistended, diffuse tenderness . No guarding. no masses palpable. No ascites, No hepatosplenomegaly.Bowel sounds heard. LEGS: No edema, No clubbing, no cyanosis.No calf tenderness. Positive DP pulses. PSYCHIATRY: Alert and oriented X3, mood and affect normal. NERVOUS SYSTEM: Cranial N 2-12 grossly normal. No focal deficits. Strength and sensation grossly intact. Skin: Warm and dry, no rash Results CBC & Chem 7: 01/05/23 08:57 01/05/23 08:57 Labs: Abnormal Lab Results - Last 24 Hours (Table) 01/04/23 01/04/23 01/04/23 Range/Units 20:11 20:11 20:11 WBC 24.2 H (3.8-10.6) k/uL Neutrophils # 21.6 H (1.3-7.7) k/uL Sodium 135 L (137-145) mmol/L Glucose 114 H (74-99) mg/dL Stool Occult Blood Positive H (Negative) Thrombosis Risk Factor Assmnt - Choose All That Apply Any of the Below Risk Factors Present?: No Other Risk Factors: Yes Each Risk Factor Represents 2 Points: Age 61-74 years, Malignancy Other congenital or acquired thrombophilia - If yes, enter type in comment: No Thrombosis Risk Factor Assessment Total Risk Factor Score: 4 Thrombosis Risk Factor Assessment Level: Moderate Risk Assessment and Plan Assessment: Abdominal cramping, diarrhea with rectal bleeding, CT reporting Acute colitis History of chronic ALLERGY induced asthma, stable Gastroesophageal reflux disease, on PPI Borderline new-onset diabetes mellitus, hemoglobin A1c 6.1 in 12/07, A1c ordered Hypertension Hyperlipidemia Former nicotine dependence History of breast cancer Plan: Continue on current medication regime, monitoring and symptomatic treatm ent. Maintain gentle IV fluid hydration, IV antibiotics. GI consult in place, recommendations pending. PPI ordered for GI prophylaxis. Pain management. The impression and plan of care has been dictated as directed. : I performed a history and examination of this patient, discussed the same with the dictator. I agree with the dictator's note ,documented as a scribe. Any additional findings or plans will be noted.
[2023-01-05] MEDS ORDERED: INSULIN ASPART (NovoLOG) 100 UNIT/ML VIAL SQ SCH (12:30)
--- NOTE | 2023-01-05 13:56 | P.CONS ---
History of Present Illness - Reason for Consult Consult date: 01/05/23 Colitis Requesting physician: Nola De La Garza - Chief Complaint Diarrhea - History of Present Illness This is a pleasant 72-year-old female who presented to the emergency department yesterday evening with complaints of diarrhea, nausea, and vomiting since Monday. Patient states she started first with nausea and vomiting on Monday which then led into diarrhea. Denies any hematemesis. Patient states diarrhea continued of multiple episodes mixed with bright red blood. States she's had greater than 10 bowel movements with blood yesterday. Denies any fever or chill s. Also having associated lower abdominal pain and cramping. No previous history of colitis or GI bleed. Last colonoscopy [address] Mortensen as a screening colonoscopy with findings of a small rectal polyp. CT of the abdomen and pelvis showed colitis in the transverse and descending colon. She states today she is feeling better, she had no bowel movement this morning and no rectal bleeding. In the emergency room she was given Levaquin and Flagyl 1 dose. She is noted to have leukocytosis on admission, afebrile. WBC on admission 24.2 hemoglobin 13.2. Denies any anticoagulation. Labs WBC 20.0 hemoglobin 12.2 hematocrit 36 platelet count 265,010 or 1.0 sodium 134 potassium 3.7 BUN 10 creatinine 0.6 glucose 98 total bilirubin 0.8 AST 19 ALT 17 alkaline phosphatase 17 stool occult blood positive CT abdomen and pelvis with contrast reports colitis involving transverse and descending colon. No evidence of organizing fluid collection or perforation. Trace fluid in pelvis, likely secondary to #1. Pessary ring is present and simple appearing hepatic cyst Review of Systems REVIEW OF SYSTEMS: CARDIOPULMONARY: No chest pain or shortness of breath. Gastrointestinal: Lower abdominal pain and cramping. Nausea and vomiting now resolved. No hematemesis, coffee-ground emesis. Diarrhea, bloody. GENITOURINARY: No dysuria or hematuria. MUSCULOSKELETAL: Reports normal range of motion. SKIN: No rashes. No jaundice. ENDOCRINE: No chills, fevers. No excessive weight gain or loss. No polydipsia or polyuria. PSYCHIATRIC: Unremarkable. NEUROLOGY: No change in mental status. Denies dizziness, headache. ENT: Vision unremarkable. CONSTITUTIONAL: No recent weight loss. No fever, chills, night sweats. Past Medical History Past Medical History: Asthma, Cancer, GERD/Reflux, Hyperlipidemia, Hypertension, Osteoarthritis (OA), Pneumonia Additional Past Medical History / Comment(s): hx. breast cancer with a lumpectomy on right side in 1999-had po chemo, urinary frequency, bilat catar acts with sx. History of Any Multi-Drug Resistant Organisms: None Reported Past Surgical History: Appendectomy, Breast Surgery, Joint Replacement Additional Past Surgical History / Comment(s): right side lumpectomy, lump harsh yesenia from left side of neck x2, right JC (06/13/22) Past Anesthesia/Blood Transfusion Reactions: Postoperative Nausea & Vomiting (PONV) Additional Past Anesthesia/Blood Transfusion Reaction / Comm: hard time waking up Past Psychological History: No Psychological Hx Reported Smoking Status: Former smoker Past Alcohol Use History: Occasional Additional Past Alcohol Use History / Comment(s): quit smoking in her 40's, started @age of 11, didn't smoke daily Past Drug Use History: Marijuana Additional Drug Use History / Comment(s): occasional use not recent - Past Family History Mother Family Medical History: No Reported History Father Family Medical History: No Reported History Medications and Allergies Home Medications Medication Instructions Recorded Confirmed Type Lovastatin [Mevacor] 20 mg PO DAILY 09/17/18 01/04/23 History Montelukast [Singulair] 10 mg PO DAILY 09/17/18 01/04/23 History lisinopriL [Zestril] 10 mg PO DAILY 09/17/18 01/04/23 History traMADol HCL [Ultram] 50 mg PO BID 09/17/18 01/04/23 History Carboxymethylcellulose Sodium 1 drop BOTH EYES DAILY 01/04/23 01/04/23 History [Refresh Tears] Oxybutynin Chloride [Ditropan] 5 mg PO DAILY 01/04/23 01/04/23 History Vitamin C/Biotin [Hair, Skin and 1 tab PO DAILY 01/04/23 01/04/23 History Nails Chew] Allergies Allergy/AdvReac Type Severity Reaction Status Date / Time No Known Allergies Allergy Verified 01/04/23 20:02 Physical Exam Vitals: Vital Signs Temp Pulse Pulse Resp BP BP Pulse Ox 01/05/23 07:00 98.2 F 80 18 164/81 99 01/05/23 02:47 98.5 F 93 18 132/71 97 01/05/23 00:36 98.3 F 78 18 135/80 98 01/04/23 22:04 82 16 144/82 97 01/04/23 19:28 98.4 F 97 20 158/92 98 Intake and Output 01/04/23 01/05/23 01/05/23 22:59 06:59 14:59 Other: # Voids 1 # Bowel Movements 1 Weight 63.503 kg 63.503 kg General appearance: The patient is alert, oriented, appears in no acute distress. HET: Head is normocephalic and atraumatic. Conjunctiva pink. Sclera anicteric. Neck: Supple without lymphadenopathy. Trachea midline. Heart: S1 S2. Regular rate and rhythm. Lungs: Clear to auscultation. Abdomen: Soft, tenderness across to lower abdomen, nondistended with bowel sounds. No guarding or rigidity. Skin: No rashes. No jaundice. Extremities: Normal skin color and turgor. No pedal edema. Neurological: No focal deficits. Alert and oriented x3. Results CBC & Chem 7: 01/05/23 08:57 01/05/23 08:57 Labs: Abnormal Lab Results - Last 24 Hours (Table) 01/04/23 01/04/23 01/04/23 Range/Units 20:11 20:11 20:11 WBC 24.2 H (3.8-10.6) k/uL Neutrophils # 21.6 H (1.3-7.7) k/uL Sodium 135 L (137-145) mmol/L Glucose 114 H (74-99) mg/dL Stool Occult Blood Positive H (Negative) Assessment and Plan (1) Colitis Narrative/Plan: 72-year-old female presented to the emergency department with 2 days of nausea vomiting and diarrhea. Patient states nausea vomiting diarrhea associated with abdominal pain and cramping. Diarrhea has been nonbloody, she reports bright red blood mixed with stool. No previous history of colitis, not on any anticoagulation, no recent sick contacts, no fevers or chills. Bleeding has improved since admission to the hospital. No bleeding through the night or this morning. Was noted to have a white blood cell count of 24 on admission. Given a dose of Levaquin and Flagyl. Will start on IV Zosyn. Possible etiologies include inflammatory, ischemic, or infectious colitis. Likely looking at an infectious colitis in light of leukocytosis. And continue symptomatic treatment. No plans an endoscopic evaluation at this time unless bleeding continues. Patient will also need outpatient follow-up in 4-6 weeks for possible outpatient colonoscopy. Current Visit: Yes Status: Acute Code(s): K52.9 - NONINFECTIVE GASTROENTERITIS AND COLITIS, UNSPECIFIED SNOMED Code(s): 89160442 (2) Nausea and vomiting Current Visit: Yes Status: Acute Code(s): R11.2 - NAUSEA WITH VOMITING, U NSPECIFIED SNOMED Code(s): 29953713 (3) Leukocytosis Current Visit: Yes Status: Acute Code(s): D72.829 - ELEVATED WHITE BLOOD CELL COUNT, UNSPECIFIED SNOMED Code(s): 822778621 (4) GI bleed Current Visit: Yes Status: Acute Code(s): K92.2 - GASTROINTESTINAL HEMORRHAGE, UNSPECIFIED SNOMED Code(s): 96697911 Plan: 1. Continue symptomatic and supportive care 2. Please collect stool C. diff 3. Antiemetics as needed 4. Protonix 40 mg daily for GI prophylaxis 5. Zosyn ordered 6. Clear liquid diet, advance as tolerated 7. Daily CBC, transfuse for hemoglobin less than 7 8. No plans an endoscopic evaluation at this time Thank you for this consultation, we will continue to follow. Dr. Won Jaffe I agree with the dictator's note, documented as a scribe by Radha Scott.
[2023-01-05] MEDS: lisinopriL 10 MG TAB PO SCH (15:00)
[2023-01-06] MEDS: HYDROmorphone 0.5 MG/0.5 ML SYRINGE IVP PRN ×3 (01:20→16:29)
[2023-01-06] MEDS: lisinopriL 10 MG TAB PO SCH (07:53)
[2023-01-06] MEDS: PANTOPRAZOLE 40 MG/10 ML VIAL IVP SCH (07:53)
[2023-01-06] MEDS: OXYBUTYNIN CHLORIDE 5 MG TAB PO SCH (07:53)
[2023-01-06] MEDS: MONTELUKAST 10 MG TAB PO SCH (07:53)
[2023-01-06] MEDS: PIPERACILLIN-TAZOBACTAM 3.375 GM in SODIUM CHLORIDE 0.9% 100 ML IVPB SCH ×3 (07:54→23:45)
[2023-01-06 08:48] LABS: Basophils # (A) 0.04 X 10*3/uL (0.00-0.10); Basophils % (A) 0.4 %; Eosinophils # (A) 0.21 X 10*3/uL (0.04-0.35); Eosinophils % (A) 1.9 %; HGB 9.7 g/dL (12.0-15.0); Immature Grans, Automated 0.4 %; Lymphocytes # (A) 1.56 X 10*3/uL (0.90-5.00); Lymphocytes % (A) 13.9 %; MCH 27.7 pg (27.0-32.0); MCHC 31.3 g/dL (32.0-37.0); MCV 88.6 fL (80.0-97.0); Mean Platelet Volume 10.2 fL (9.5-12.2); Monocytes # (A) 0.78 X 10*3/uL (0.20-1.00); NRBC Per 100 WBC 0 /100 WBCS (0.0-0.0); Neutrophils # (A) 8.59 X 10*3/uL (1.80-7.70); Neutrophils % (A) 76.4 %; Platelet Count 214 X 10*3/uL (140-440); RDW 13.9 % (11.5-14.5); WBC 11.22 X 10*3/uL (4.50-10.00)
[2023-01-06 08:58] LABS: African American GFR (CKD) 75.1 (60.0-200.0); Anion Gap 10.9 mmol/L (10.00-18.00); Blood Urea Nitrogen 6.3 mg/dL (9.0-27.0); Calcium 8.3 mg/dL (8.7-10.3); Carbon Dioxide 21.1 mmol/L (20.0-27.5); Non-African American GFR(CKD) 64.8 (60.0-200.0); Potassium 3.9 mmol/L (3.5-5.5)
[2023-01-06] MEDS: ARTIFICIAL TEARS-HYPROMELLOSE DROPS 15 ML BTL BOTH EYES SCH (09:11)
--- NOTE | 2023-01-06 20:23 | P.PN ---
Subjective Progress Note Date: 01/06/23 Chief Complaint: Abdominal cramping, diarrhea, rectal bleeding This is a pleasant 72-year-old female with past medical history of asthma, former nicotine dependence, occasional marijuana use, history of breast cancer, gastroesophageal reflux disease,PONV, hypertension, hyperlipidemia, osteoarthritis and multiple other medical issues presented to the ER with complaints of nausea, vomiting, diarrhea with bright red blood "streaks" in her stools since yesterday, accompanied by abdominal cramping, low-grade fevers and chills. Denies any chest pain, palpitations or shortness of breath. Denies any lightheadedness, dizziness or focal deficits. Denies syncope. Reports her last colonoscopy was approximately 2 years ago and stated normal. Denies prior history of colitis.CT of abdomen and pelvis reported colitis involving the transverse and descending colon with no evidence of organizing fluid collection or perforation, trace fluid in the pelvis, pessary ring present, simple- appearing hepatic cyst. Afebrile, WBC decreased from 24.2-20, hemoglobin 12.2, platelets 265, sodium 134, potassium 3.7, bicarb 24, BUN 10, creatinine 0.69. LFTs within normal limits .Stool for occult blood positive. Received IV antiemetics, IV fluid hydration and IV antibiotics of Levaquin and Flagyl. Pain management with hydromorphone. Vital signs stable, maintaining O2 sats in the high 90s on room air. 01/06/2023 Patient is seen and evaluated in follow-up today continues with some abdominal cramping in the lower area and reports to having some diarrhea although feels slightly improved. Patient is maintained on IV Zosyn and will continue. GI had evaluated the patient recommending to continue current regimen and slowly advance diet as tolerated. Patient is currently maintained on clear liquids and will slightly advance with with continued gentle IV hydration Review of systems: Constitutional: No reports of fatigue, fever, or chills Cardiovascular: No reports of chest pain or palpitations Respiratory: No reports of shortness of breath or cough GI: No reports of nausea, vomiting, or diarrhea reports loose stool and some abdominal cramping : No reports of dysuria or retention Neurovascular: No reports of weakness or numbness All medications have been reviewed Active Medications Artificial Tears (Artificial Tears-Hypromellose Drops 15 Ml Btl) 1 drops BOTH EYES DAILY DAVID Last Admin: 01/06/23 09:11 Dose: 1 drops Dextrose/Water (Dextrose 50% Syringe 50 Ml) 50 ml IVP PER PROTOCOL PRN; Protocol PRN Reason: Hypoglycemia Hydromorphone HCl (Hydromorphone 0.5 Mg/0.5 Ml Syringe) 0.5 mg IVP Q6HR PRN PRN Reason: Pain Last Admin: 01/06/23 16:29 Dose: 0.5 mg Piperacillin Sod/Tazobactam (Sod 3.375 gm/ Sodium Chloride) 100 mls @ 25 mls/hr IVPB Q8HR [facility]; Protocol Last Admin: 01/06/23 16:23 Dose: 25 mls/hr Lisinopril (Lisinopril 10 Mg Tab) 10 mg PO DAILY [facility] Last Admin: 01/06/23 07:53 Dose: 10 mg Montelukast Sodium (Montelukast 10 Mg Tab) 10 mg PO DAILY [facility] Last Admin: 01/06/23 07:53 Dose: 10 mg Naloxone HCl (Naloxone 0.4 Mg/Ml 1 Ml Vial) 0.2 mg IV Q2M PRN PRN Reason: Opioid Reversal Ondansetron HCl (Ondansetron 4 Mg/2 Ml Vial) 4 mg IVP Q6HR PRN PRN Reason: Nausea And Vomiting Last Admin: 01/06/23 11:38 Dose: 4 mg Oxybutynin Chloride (Oxybutynin Chloride 5 Mg Tab) 5 mg PO DAILY [facility] Last Admin: 01/06/23 07:53 Dose: 5 mg Pantoprazole Sodium (Pantoprazole 40 Mg/10 Ml Vial) 40 mg IVP DAILY [facility] Last Admin: 01/06/23 07:53 Dose: 40 mg Physical exam: Gen: This is a 72-year-old female who is awake, alert and oriented 3, well- developed, well-nourished HEENT: Head is atraumatic, normocephalic. Pupils equal, round. Sclerae is anicteric. NECK: Supple. No JVD. No lymphadenopathy. No thyromegaly. LUNGS: Diminished Breath sounds bilaterally with no wheezes or rhonchi. No intercostal retractions. HEART: S1, S2 are muffled ABDOMEN: Soft. Tender of lower left and right quadrants Bowel sounds are present. No masses. EXTREMITIES: No pedal edema. No calf tenderness. NEUROLOGICAL: Patient is awake, alert and oriented x3. Cranial nerves 2 through 12 are grossly intact. Assessment: Abdominal cramping, diarrhea with rectal bleeding, CT reporting Acute colitis History of chronic ALLERGY induced asthma, stable Gastroesophageal reflux disease, on PPI Borderline new-onset diabetes mellitus, hemoglobin A1c 6.1 in 12/07, A1c ordered Hypertension Hyperlipidemia Former nicotine dependence History of breast cancer Plan: Recommend continue current regimen including gentle IV hydration along with IV antibiotics. Patient was evaluated by GI recommending outpatient follow-up and continue with IV antibiotics and slowly advanced diet as tolerated Encouraged increased activity as tolerated Will follow-up with repeat labs Continue with pain management and limit IV narcotic use Due to multiple complex medical issues, prognosis is guarded Possible discharge in 24-48 hours The impression and plan of care has been dictated by Kelle Porter, Nurse Practitioner as directed. Dr. Matt MD I have performed a history and examination and MDM of this patient, discussed the same with the dictator, and agree with the dictator's assessment and plan as written ,documented as a scribe. Based on total visit time, I have performed more than 50% of the visit. Objective - Vital Signs Vital signs: Vital Signs Temp 98.3 F 01/06/23 15:00 Pulse 74 01/06/23 15:00 Resp 18 01/06/23 15:00 BP 177/80 01/06/23 15:00 Pulse Ox 96 01/06/23 15:00 FiO2 Intake & Output 01/06/23 01/06/23 01/07/23 06:59 18:59 06:59 Intake Total 120 Balance 120 Intake: Oral 120 Other: Voiding Method Toilet Toilet # Voids 1 3 # Bowel Movements 1 1 - Labs CBC & Chem 7: 01/06/23 04:21 01/06/23 04:21 Labs: Abnormal Lab Results - Last 24 Hours (Table) 01/06/23 01/06/23 Range/Units 04:21 04:21 WBC 11.22 H (4.50-10.00) X 10*3/uL RBC 3.50 L (4.10-5.20) X 10*6/uL Hgb 9.7 L (12.0-15.0) g/dL Hct 31.0 L (37.2-46.3) % MCHC 31.3 L (32.0-37.0) g/dL Neutrophils # 8.59 H (1.80-7.70) X 10*3/uL BUN 6.3 L (9.0-27.0) mg/dL BUN/Creatinine Ratio 7.00 L (12.00-20.00) Ratio Calcium 8.3 L (8.7-10.3) mg/dL Microbiology - Last 24 Hours (Table) 01/05/23 08:57 Blood Culture - Preliminary Blood No Growth after 24 hours 01/04/23 22:15 Blood Culture - Preliminary Blood No Growth after 24 hours 01/04/23 22:30 Blood Culture - Preliminary Blood No Growth after 24 hours
[2023-01-06] MEDS ORDERED: HYDROcodone/APAP 5-325MG 1 EACH TAB PO PRN (20:24)
[2023-01-06] MEDS ORDERED: LOPERAMIDE 2 MG CAP PO PRN (20:24)
--- NOTE | 2023-01-07 04:25 | PN ---
PROGRESS NOTE DATE OF SERVICE: 01/06/2023 SUBJECTIVE: The patient is a 72-year-old pleasant white female admitted to the hospital with lower abdominal pain followed by bloody diarrhea of 2 days' duration. She is doing much better. She still has some left lower quadrant abdominal pain, but the bleeding has completely subsided. She denies any nausea or vomiting. No fever, chills, or night sweats. PHYSICAL EXAMINATION: GENERAL: She appears comfortable, no apparent distress. VITAL SIGNS: Stable. Blood pressure is 151/82, pulse is 75, and temperature 98.1. HEENT: Unremarkable. Conjunctivae pink, sclerae anicteric. Oral cavity, no lesions. NECK: No JVD or lymph node enlargement. CHEST: Clear to auscultation. HEART: Regular rate and rhythm. ABDOMEN: Soft, there was mild tenderness in the left lower quadrant area. Bowel sounds are positive. No organomegaly. EXTREMITIES: No pedal edema. SKIN: No rashes. NEURO: She is alert and oriented x3. No focal deficits. LABS: Labs done, today WBC 11.2, hemoglobin 9.7, platelets normal. Basic metabolic panel is within normal limits. IMPRESSION: Acute onset of left lower quadrant abdominal pain followed by diarrhea and rectal bleeding of [address] scan of the abdomen did show thickening of the sigmoid and descending colon consistent with acute ischemic colitis versus infectious colitis. The patient presently on broad-spectrum antibiotics and her symptoms are gradually improving. Bleeding has completely resolved. Her last colonoscopy was about 5 years ago. RECOMMENDATIONS: 1. Continue with a clear liquid diet and if her abdominal pain improves, it can be advanced to soft low-fiber diet. 2. Continue with broad-spectrum antibiotics. 3. If the patient is stable, she can be discharged home tomorrow with an outpatient followup in 2-3 weeks and we will plan a colonoscopy on outpatient basis. Plan was discussed with her. She is agreeable to it. MMODL / IJN: [id number] /
[2023-01-07] MEDS: MONTELUKAST 10 MG TAB PO SCH (09:06)
[2023-01-07] MEDS: PANTOPRAZOLE 40 MG/10 ML VIAL IVP SCH (09:06)
[2023-01-07] MEDS: PIPERACILLIN-TAZOBACTAM 3.375 GM in SODIUM CHLORIDE 0.9% 100 ML IVPB SCH (09:07)
[2023-01-07] MEDS: ARTIFICIAL TEARS-HYPROMELLOSE DROPS 15 ML BTL BOTH EYES SCH (09:07)
[2023-01-07] MEDS: lisinopriL 10 MG TAB PO SCH (09:07)
[2023-01-07] MEDS: OXYBUTYNIN CHLORIDE 5 MG TAB PO SCH (09:14)
[2023-01-07 09:21] LABS: Basophils # (A) 0.05 X 10*3/uL (0.00-0.10); Basophils % (A) 0.4 %; Eosinophils # (A) 0.28 X 10*3/uL (0.04-0.35); Eosinophils % (A) 2.2 %; HCT 29.8 % (37.2-46.3); HGB 9.4 g/dL (12.0-15.0); Immature Grans, Automated 0.3 %; Lymphocytes # (A) 1.34 X 10*3/uL (0.90-5.00); Lymphocytes % (A) 10.5 %; MCH 27.5 pg (27.0-32.0); MCHC 31.5 g/dL (32.0-37.0); MCV 87.1 fL (80.0-97.0); Mean Platelet Volume 10.2 fL (9.5-12.2); Monocytes # (A) 0.85 X 10*3/uL (0.20-1.00); Monocytes % (A) 6.7 %; NRBC Per 100 WBC 0 /100 WBCS (0.0-0.0); Neutrophils % (A) 79.9 %; Platelet Count 218 X 10*3/uL (140-440); RBC 3.42 X 10*6/uL (4.10-5.20); RDW 13.7 % (11.5-14.5); WBC 12.76 X 10*3/uL (4.50-10.00)
[2023-01-07 09:54] LABS: African American GFR (CKD) 75.1 (60.0-200.0); Anion Gap 8.1 mmol/L (10.00-18.00); BUN/Creat Ratio 4.78 Ratio (12.00-20.00); Blood Urea Nitrogen 4.3 mg/dL (9.0-27.0); Calcium 8.1 mg/dL (8.7-10.3); Carbon Dioxide 22.9 mmol/L (20.0-27.5); Magnesium 1.8 mg/dL (1.5-2.4); Non-African American GFR(CKD) 64.8 (60.0-200.0); Potassium 3.8 mmol/L (3.5-5.5)
[2023-01-07 15:22] VITALS: BP 159/75; PULSE 87; RESP 17
[2023-01-07 15:28] VITALS: TEMP 98.3
--- NOTE | 2023-01-11 06:59 | P.DS ---
Providers Date of admission: 01/04/23 22:21 Expected date of discharge: 01/07/23 Attending physician: Eric Cooney Consults: 01/04/23 22:19 Consult Physician Routine Consulting Provider: Christy Jaffe Consult Reason/Comments: colitis Do you want consulting provider notified?: Yes Primary care physician: Eric Cooney Hospital Course: Final diagnosis Abdominal cramping, diarrhea with rectal bleeding, CT reporting Acute colitis History of chronic ALLERGY induced asthma, stable Gastroesophageal reflux disease, on PPI Borderline new-onset diabetes mellitus, hemoglobin A1c 6.1 in 12/07 Hypertension Hyperlipidemia Former nicotine dependence History of breast cancer Discharge disposition Patient is being discharged in a stable condition with guarded prognosis to home. Patient will follow-up with Dr. Cooney in the outpatient setting upon discharge. Patient is to follow-up with GI in the outpatient setting and will continue on short course of antibiotics to complete the course. Total time taken is greater than 35 minutes. Hospital course This is a 72-year-old female who was recently admitted with abdominal pain with cramping and diarrhea and noted bleeding and being on closely for acute colitis. Patient was maintained on antibiotics and gentle IV hydration and evaluated by GI recommending some bowel rest with clear liquids and slowly advance as tolerated. Patient is seen in follow-up tolerating advanced diet a low fiber and would consider continuing over the next few days and slowly advance with close outpatient follow-up with GI. Currently no reports of chest pain, shortness of breath, or palpitations. Patient is afebrile. No reports of nausea or vomiting and patient is tolerating diet. Discharged home Patient will be today. Physical exam: Gen: This is a 72-year-old female who is awake, alert and oriented 3, well- developed, well-nourished HEENT: Head is atraumatic, normocephalic. Pupils equal, round. Sclerae is anicteric. NECK: Supple. No JVD. No lymphadenopathy. No thyromegaly. LUNGS: Clear to auscultation. No wheezes or rhonchi. No intercostal retractions. HEART: Regular rate and rhythm. No murmur. ABDOMEN: Soft. Bowel sounds are present. No masses. No tenderness. EXTREMITIES: No pedal edema. No calf tenderness. NEUROLOGICAL: Patient is awake, alert and oriented x3. Cranial nerves 2 through 12 are grossly intact. Please refer to medication reconciliation sheet for a list of medications. The impression and plan of care has been dictated by Kelle Porter, Nurse Practitioner as directed. Dr. Matt MD I have performed a history and examination and MDM of this patient, discussed the same with the dictator, and agree with the dictator's assessment and plan as written ,documented as a scribe. Based on total visit time, I have performed more than 50% of the visit. Patient Condition at Discharge: Good Plan - Discharge Summary New Discharge Prescriptions: New Amoxic-Pot Clav 875-125Mg [Augmentin 875-125] 1 tab PO BID 5 Days #10 tab Loperamide [Imodium] 2 mg PO QID PRN cap PRN Reason: Diarrhea Ondansetron Odt [Zofran Odt] 4 mg PO Q8HR PRN #20 tab PRN Reason: Nausea Pantoprazole [Protonix] 40 mg PO DAILY #30 tab Continue traMADol HCL [Ultram] 50 mg PO BID Montelukast [Singulair] 10 mg PO DAILY Lovastatin [Mevacor] 20 mg PO DAILY lisinopriL [Zestril] 10 mg PO DAILY Vitamin C/Biotin [Hair, Skin and Nails Chew] 1 tab PO DAILY Oxybutynin Chloride [Ditropan] 5 mg PO DAILY Carboxymethylcellulose Sodium [Refresh Tears] 1 drop BOTH EYES DAILY Discharge Medication List Lovastatin [Mevacor] 20 mg PO DAILY 09/17/18 [History] Montelukast [Singulair] 10 mg PO DAILY 09/17/18 [History] lisinopriL [Zestril] 10 mg PO DAILY 09/17/18 [History] traMADol HCL [Ultram] 50 mg PO BID 09/17/18 [History] Carboxymethylcellulose Sodium [Refresh Tears] 1 drop BOTH EYES DAILY 01/04/23 [History] Oxybutynin Chloride [Ditropan] 5 mg PO DAILY 01/04/23 [History] Vitamin C/Biotin [Hair, Skin and Nails Chew] 1 tab PO DAILY 01/04/23 [History] Amoxic-Pot Clav 875-125Mg [Augmentin 875-125] 1 tab PO BID 5 Days #10 tab 01/07/23 [Rx] Loperamide [Imodium] 2 mg PO QID PRN cap 01/07/23 [Rx] Ondansetron Odt [Zofran Odt] 4 mg PO Q8HR PRN #20 tab 01/07/23 [Rx] Pantoprazole [Protonix] 40 mg PO DAILY #30 tab 01/07/23 [Rx] Follow up Appointment(s)/Referral(s): Eric Cooney DO [Primary Care Provider] - 1-2 days Chritsy Jaffe MD [STAFF PHYSICIAN] - 1 Week Ambulatory/Diagnostic Orders: Complete Blood Count w/diff [LAB.AMB] Time Frame: 3 Days, Location: None Selected Patient Instructions/Handouts: Colitis (ED) Activity/Diet/Wound Care/Special Instructions: Activity Limited until follow-up Continue taking medications as prescribed Follow-up with primary care provider on discharge Follow-up with GI outpatient in 2-3 weeks as discussed Continue clear liquids and slowly advance to low fiber soft foods for the next few days Discharge Disposition: HOME SELF-CARE
--- NOTE | 2023-02-03 07:49 | CDI ---
Documentation Clarification Form Date: 02/03/23 From: Beth Lindsey Admit Date: 01/06/2023 8:25:00 PM Patient Name: Josefina Robins Visit Number: [id number] Discharge Date: 01/07/2023 4:03:00 PM ATTENTION: The Clinical Documentation Specialists (CDI) and [facility] Coding Staff appreciate your assistance in clarifying documentation. Please respond to the clarification below the line at the bottom and electronically sign. The CDI & [facility] Coding staff will review the response and follow-up if needed. Please note: Queries are made part of the Legal Health Record. If you have any questions, please contact the author of this message via ITS. Dr. Taj Gutierrez, Colitis is documented in the ED Note, H&P, GI consult, PNs & DS. Additional clarification regarding the type of colitis is requested. History/risk factors: GERD, HTN, HLD, borderline DM, breast cancer history Clinical Indicators: .Patient statesnausea vomitingdiarrheaassociated with abdominal painandcramping. Diarrheahas been nonbloody, she reports bright red blood mixed with stool. No previoushistory ofcolitis, not on any anticoagulation, no recent sick, contacts,nofeversorchills. CT Scan of ABD: showthickeningof the sigmoid and descending colon consistent withacute ischemic colitisversus infectious colitis. Labs: Daily CBC, transfuse for HGB < 7 Colonoscopy results: Not done Treatment: Broad-spectrum antibiotics Please clarify the type of colitis, if known: [ ] Acute Ischemic colitis [ ] Infective Enteritis [ ] Noninfective colitis [ ] Colitis [ ] Other, please specify [ ] Unable to determine Acute Ischemic colitis MTDD
== END 2023-01-07 16:03 | disposition home or self-care (01) ==
LOC: EC 16:59 → 6NMEDSUR 22:21 → INTOOBSV 01-06 20:25 → OBSVTOIN 01-06 20:25 → UNDODISIN 01-07 16:03 → UNDODISOB 01-07 16:03
PROVIDERS: ADMIT Family Medicine; ATTEND Family Medicine
DX: K55.039 Acute (reversible) ischemia of large intestine, extent unspecified (principal); J45.909 Unspecified asthma, uncomplicated; K21.9 Gastro-esophageal reflux disease without esophagitis; E78.5 Hyperlipidemia, unspecified; I10 Essential (primary) hypertension; D72.829 Elevated white blood cell count, unspecified; K76.89 Other specified diseases of liver; F12.90 Cannabis use, unspecified, uncomplicated; Z85.3 Personal history of malignant neoplasm of breast; Z92.21 Personal history of antineoplastic chemotherapy; Z98.42 Cataract extraction status, left eye; Z98.41 Cataract extraction status, right eye; Z79.899 Other long term (current) drug therapy; Z87.891 Personal history of nicotine dependence; Z96.641 Presence of right artificial hip joint
CPT/HCPCS: 36415; 74177; 80048; 80053; 82272; 83036; 83605; 83735; 85025; 85610; 85730; 86850; 86900; 86901; 87040; 87324; 96361; 96365; 96366; 96367; 96368; 96375; 96376; 99285

== ENCOUNTER → 2023-01-17 | Outpatient (CLI) | payer MEDICARE ==
[2023-01-17 19:44] LABS: Basophils # (A) 0.03 X 10*3/uL (0.00-0.10); Basophils % (A) 0.5 %; Eosinophils # (A) 0.15 X 10*3/uL (0.04-0.35); Eosinophils % (A) 2.6 %; HCT 37.5 % (37.2-46.3); Immature Grans, Automated 0.9 %; Lymphocytes # (A) 1.52 X 10*3/uL (0.90-5.00); Lymphocytes % (A) 26.6 %; MCV 87.6 fL (80.0-97.0); Monocytes # (A) 0.51 X 10*3/uL (0.20-1.00); Monocytes % (A) 8.9 %; NRBC Per 100 WBC 0 /100 WBCS (0.0-0.0); Neutrophils # (A) 3.45 X 10*3/uL (1.80-7.70); Neutrophils % (A) 60.5 %; Platelet Count 237 X 10*3/uL (140-440); RBC 4.28 X 10*6/uL (4.10-5.20); WBC 5.71 X 10*3/uL (4.50-10.00)
[2023-01-17 19:54] LABS: African American GFR (CKD) 58.3 (60.0-200.0); Anion Gap 11.6 mmol/L (10.00-18.00); BUN/Creat Ratio 14.59 Ratio (12.00-20.00); Blood Urea Nitrogen 16.2 mg/dL (9.0-27.0); Calcium 9.5 mg/dL (8.7-10.3); Carbon Dioxide 25.6 mmol/L (20.0-27.5); Non-African American GFR(CKD) 50.3 (60.0-200.0); Potassium 4.6 mmol/L (3.5-5.5)
== END | disposition home or self-care (01) ==
LOC: LABWHC1 13:15
PROVIDERS: ATTEND Registered Nurse
DX: D72.829 Elevated white blood cell count, unspecified (principal); K52.9 Noninfective gastroenteritis and colitis, unspecified
CPT/HCPCS: 36415; 80048; 85025

== ENCOUNTER 2023-02-28 09:50 | Day surgery (SDC) | payer MEDICARE ==
[2023-02-28] MEDS ORDERED: LIDOCAINE 1% (10MG/ML) FOR IV START INTRADERMA PRN (10:08)
[2023-02-28] MEDS ORDERED: LACTATED RINGERS 1,000 ML IV SCH (10:08)
[2023-02-28] MEDS ORDERED: LACTATED RINGERS 1,000 ML IV ONE (10:08)
[2023-02-28 10:32] VITALS: TEMP 97
[2023-02-28] MEDS ORDERED: PROPOFOL 10 MG/ML 20 ML VIAL IV ONE (11:01)
--- NOTE | 2023-02-28 11:21 | P.PCN ---
Date of Procedure: 02/28/23 Procedure(s) Performed: BRIEF HISTORY: Patient is a 72-year-old pleasant white female scheduled for an elective colonoscopy as a part of evaluation of recent episode of acute onset of left lower quadrant abdominal pain followed by a feeding of 2 days' duration. She went to the ER and had CAT scan of abdomen and pelvis done that showed thickening of the transverse and descending colon. Was discharged home and he scheduled for an outpatient colonoscopy today. PROCEDURE PERFORMED: Colonoscopy with biopsy. PREOPERATIVE DIAGNOSIS: Recent episode of acute lower abdominal pain and rectal bleeding perforation duration. IV sedation per Anesthesia. PROCEDURE: After informed consent was obtained, the patient, was brought into the endoscopy unit. IV sedation was administered by Anesthesia under continuous monitoring. Digital rectal examination was normal. Initially the Olympus CF-160 flexible video colonoscope was then inserted in the rectum, gradually advanced into the cecum without any difficulty. Careful examination was performed as the scope was gradually being withdrawn. Ileocecal valve and the appendiceal orifice were visualized and appeared normal. Prep was excellent. Mucosa of the cecum, ascending colon, transverse colon, normal. There was mild segmental colitis involving the descending colon extending from 40-50 cm from the anal verge with mild mucosal erythema and friability suspicious for resolving acute ischemic colitis and biopsies were done from this area. Rest of the descending colon, sigmoid colon, and rectum appeared normal. Retroflexion was performed in the rectum and no lesions were seen. The patient tolerated the procedure well. IMPRESSION: Mild segmental colitis involving the descending colon extending from 40-50 cm from the anal with mucosal erythema and friability suspicious for acute ischemic colitis which appears to be resolving Scattered sigmoid diverticulosis. Rest of the colon appeared normal RECOMMENDATIONS: Findings of this examination were discussed with the patient less her family. She was advised to follow with the biopsy results. She will continue with a high-fiber diet and fiber supplements regularly. Recommend a repeat colonoscopy in 10 years.
[2023-02-28 11:49] VITALS: BP 159/90; PULSE 64; RESP 20
== END 2023-02-28 12:02 | disposition home or self-care (01) ==
LOC: ORWHC2ENDO 09:50
PROVIDERS: ATTEND Internal Medicine Gastroenterology
DX: K50.10 Crohn's disease of large intestine without complications (principal); K57.30 Diverticulosis of large intestine without perforation or abscess without bleeding; I10 Essential (primary) hypertension; E78.5 Hyperlipidemia, unspecified; J45.909 Unspecified asthma, uncomplicated; K21.9 Gastro-esophageal reflux disease without esophagitis; Z87.891 Personal history of nicotine dependence; Z79.899 Other long term (current) drug therapy; Z88.8 Allergy status to other drugs, medicaments and biological substances
CPT/HCPCS: 88305; 45380; J2704

== ENCOUNTER → 2023-08-02 | Outpatient (CLI) | payer MEDICARE ==
--- NOTE | 2023-08-05 07:47 | MR ---
EXAMINATION TYPE: MR knee LT wo con DATE OF EXAM: 08/02/2023 COMPARISON: NONE HISTORY: Left knee pain behind the knee with locking after running into injury TECHNIQUE: Multiplanar, multisequence images of the knee is performed without IV contrast. FINDINGS: MEDIAL MENISCUS: Anterior and posterior horns are intact without tear. LATERAL MENISCUS: A truncated appearance to the lateral meniscus with abnormal signal in the anterior horn sagittal image 9 and extending to articular surface. Patient denies history of prior surgery. CRUCIATE LIGAMENTS: The anterior and posterior cruciate ligaments are intact and unremarkable. COLLATERAL LIGAMENTS: The medial collateral ligament and lateral collateral ligament complex are inta ct and unremarkable. EXTENSOR MECHANISM: Visualized quadriceps and patellar tendons are intact. EFFUSION: Small size suprapatellar joint effusion. POPLITEAL CYST: Small size popliteal/wheeler cyst. TRICOMPARTMENT SPACES: Fairly moderate tricompartment joint space loss. Mild spurring patellofemoral compartment. CARTILAGE: Chondromalacia patella with cartilaginous loss on the posterior patellar pole. Some cartil aginous loss medial tibiofemoral compartment. BONE MARROW SIGNAL: There is subchondral cystic change involving the central tibia. OTHER: No additional significant abnormality is appreciated. IMPRESSION: 1. Full-thickness tear through the lateral meniscus is felt present involving the anterior horn and c entral body. 2. Fairly moderate tricompartment degenerative changes are seen as detailed above. 3. Small size suprapatellar joint effusion. 4. Small size popliteal cyst.
== END | disposition home or self-care (01) ==
LOC: RADMRIMAIN 17:41
PROVIDERS: ATTEND Orthopaedic Surgery
DX: M17.12 Unilateral primary osteoarthritis, left knee (principal); M71.22 Synovial cyst of popliteal space [Baker], left knee; M25.462 Effusion, left knee; S83.282A Other tear of lateral meniscus, current injury, left knee, initial encounter; X58.XXXA Exposure to other specified factors, initial encounter

== ENCOUNTER → 2023-09-08 | Outpatient (CLI) | payer MEDICARE ==
[2023-09-08 16:18] LABS: Basophils # (A) 0.06 X 10*3/uL (0.00-0.10); Basophils % (A) 0.8 %; Eosinophils % (A) 4.1 %; HCT 37.9 % (37.2-46.3); HGB 12.1 g/dL (12.0-15.0); Lymphocytes # (A) 1.79 X 10*3/uL (0.90-5.00); Lymphocytes % (A) 24.5 %; MCH 28.3 pg (27.0-32.0); MCHC 31.9 g/dL (32.0-37.0); MCV 88.6 FL (80.0-97.0); Mean Platelet Volume 10.4 FL (9.5-12.2); Monocytes # (A) 0.68 X 10*3/uL (0.20-1.00); Monocytes % (A) 9.3 %; NRBC Per 100 WBC 0 X 10*3/uL (0.00-0.01); Neutrophils # (A) 4.46 X 10*3/uL (1.80-7.70); Neutrophils % (A) 61.2 %; Platelet Count 256 X 10*3/uL (140-440); RBC 4.28 X 10*6/uL (4.10-5.20); RDW 13.1 % (11.5-14.5)
[2023-09-08 16:23] LABS: Anion Gap 11.2 mmol/L (4.00-12.00); Carbon Dioxide 26.8 mmol/L (21.6-31.8); Potassium 4.4 mmol/L (3.5-5.5)
== END | disposition home or self-care (01) ==
LOC: LABPAT 09:48
PROVIDERS: ATTEND Orthopaedic Surgery
DX: Z01.812 Encounter for preprocedural laboratory examination (principal); M23.92 Unspecified internal derangement of left knee
CPT/HCPCS: 36415; 80051; 85025; 93005

== ENCOUNTER 2023-09-20 07:59 | Day surgery (SDC) | payer MEDICARE ==
[2023-09-19 09:27] VITALS: BMI 25.6
--- NOTE | 2023-09-19 13:23 | HP ---
HISTORY AND PHYSICAL DATE OF SCHEDULED SURGERY: 09/20/2023. HISTORY OF PRESENT ILLNESS: Josefina Robins is a 72-year-old patient seen with progressive left knee pain. Options were discussed. She elected to proceed with left knee arthroscopy. Consent is obtained. PAST MEDICAL HISTORY: Hypertension, hyperlipidemia. PAST SURGICAL HISTORY: Noncontributory. MEDICATIONS: Lisinopril, lovastatin, tramadol, Claritin. ALLERGIES: None. SOCIAL HISTORY: She denies tobacco use. PHYSICAL EVALUATION OF THE LEFT KNEE: Range of motion is 0 to 125 degrees. No effusion. Tenderness to medial joint line. Positive medial Zoya's. Positive lateral Zoya's. Ligaments stable. Hip rotation without pain. Distal neurovascular exam is intact. RADIOGRAPHS: Left knee radiographs revealed mild osteoarthritis, left knee. MRI revealed a lateral meniscal tear, arthritis and effusion. IMPRESSION: 1. Internal derangement of left knee with lateral meniscal tear. 2. Hypertension. 3. Hyperlipidemia. PLAN: Left knee arthroscopy with partial lateral meniscectomy and debridement. MMODL / IJN: [id number] /
[~2023-09-20 07:59] MED LIST changes: -ACETAMINOPHEN TAB 500 MG TAB PO PRN; +DEXAMETHASONE SOD PHOSPHATE 4 MG/ML 1 ML VIAL IV ONE; +LACTATED RINGERS 1,000 ML IV SCH; +LIDOCAINE 1% (10MG/ML) FOR IV START INTRADERMA PRN; -MELOXICAM 7.5 MG TAB PO PRN; +MIDAZOLAM 2 MG/2 ML VIAL IV PRN; +ONDANSETRON 4 MG/2 ML VIAL IVP ONE; -TRANEXAMIC ACID IN NACL,ISO-OS 1,000 MG in SALINE 1 100ML.BAG IVPB PRN
[2023-09-20] MEDS ORDERED: LACTATED RINGERS 1,000 ML IV ONE ×2 (08:27→11:17)
[2023-09-20] MEDS ORDERED: SCOPOLAMINE 1 MG/72 HR PATCH TRANSDERM ONE (08:42)
[2023-09-20] MEDS ORDERED: PROPOFOL 10 MG/ML 20 ML VIAL IV ONE (09:38)
[2023-09-20] MEDS ORDERED: LIDOCAINE 1% INJ 10MG/ML (20 ML MDV) ONE (09:38)
[2023-09-20] MEDS ORDERED: MIDAZOLAM 2 MG/2 ML VIAL ONE (09:38)
[2023-09-20] MEDS ORDERED: fentaNYL (PF) 50 MCG/ML 2 ML AMP ONE (09:38)
[2023-09-20] MEDS ORDERED: BUPIVACAINE (PF) 0.25% 30 ML VIAL SQ ONE ×2 (09:57→10:06)
--- NOTE | 2023-09-20 10:19 | P.OP ---
Date of Procedure: 09/20/23 Preoperative Diagnosis: Internal derangement left Postoperative Diagnosis: 1. Tear medial and lateral meniscus left knee 2. Grade 2/3 chondromalacia medial femoral condyle left knee 3. Reactive synovitis medial, lateral and suprapatellar compartments left knee Procedure(s) Performed: 1. Arthroscopic partial medial and lateral meniscectomy left knee 2. Arthroscopic partial synovectomy medial, lateral and suprapatellar compartments left knee 3. Arthroscopic chondroplasty medial femoral condyle left knee Anesthesia: SHARIA, local Surgeon: Dajuan Rose Estimated Blood Loss (ml): 5 Pathology: none sent Condition: stable Disposition: PACU Indications for Procedure: 72-year-old patient seen with progressive left knee pain. After having treatment options discussed, she elected to proceed with arthroscopy. Operative Findings: See description of procedure Description of Procedure: Patient was taken to the operative suite. Patient underwent a general anesthetic by the department of anesthesia. Patient was given preoperative antibiotics. The left lower extremity was placed in a well-padded arthroscopic leg roberts. The left leg was prepped and draped in the normal sterile orthopedic fashion. A lateral parapatellar and suprapatellar incision was made. Trochars were inserted. Arthroscopy was initiated. Suprapatellar pouch revealed diffuse thick reactive synovitis. The patellofemoral joint appeared to articulate congruently. There was grade 1/2 chondromalacia of the patella without significant osteochondral tears. The scope was guided into the medial gutter. No loose bodies or plica were identified. The scope was then guided into the medial compartment. A medial parapatellar incision was made. Trocar inserted followed by probe. There was a radial tear involving the posterior horn medial meniscus. There were grade 2/3 chondromalacia changes of the medial femoral condyle with some osteochondral flap tears present. There was thick reactive synovitis anteriorly. I performed a partial medial meniscectomy getting down to stable meniscal tissue. I performed a chondroplasty of the medial femoral condyle getting down to stable osteochondral tissue. I performed a partial synovectomy decompressing the thick reactive synovitis anteriorly. The residual meniscus was probed and was found to be stable. The residual osteochondral surface was stable. There was good decompression of the synovitis. Scope and probe were then guided into the intercondylar notch. Cruciates were identified, probed and found to be stable. The scope and probe were then guided into lateral compartment. There was a radial tear involving the midbody lateral meniscus. There were grade 1 chondromalacia changes lateral compartment without tears. There was thick reactive synovitis anteriorly. I performed a partial lateral meniscectomy getting down to stable meniscal tissue. I performed a partial synovectomy decompressing the reactive synovitis. The residual meniscus was stable. There was good decompression of the synovitis. The scope was in guided back into the suprapatellar compartment. Introduced a motorized shaver and into the suprapatellar compartment. I debrided some piecemeal fragments of meniscus I encountered. I performed a partial synovectomy. Shaver now was removed. There was good decompression of the synovitis. I now took one more look around the entire knee, no residual debris. Instruments were now removed from the joint. The joint was infiltrated with .25% Marcaine. Steri-Strips were applied to the portal sites. Sterile dressings were applied. The patient was placed into a SANG hose. No tourniquet was utilized. The patient was awakened, transferred to a bed and taken to recovery stable satisfactory condition.
[2023-09-20 10:41] VITALS: RESP 16; TEMP 97.5
[2023-09-20] MEDS: HYDROmorphone 0.5 MG/0.5 ML SYRINGE IVP PRN ×2 (10:52→11:07)
[2023-09-20 12:16] VITALS: BP 136/82; PULSE 80
== END 2023-09-20 12:24 | disposition home or self-care (01) ==
LOC: OR 07:59
PROVIDERS: ATTEND Orthopaedic Surgery
DX: S83.282A Other tear of lateral meniscus, current injury, left knee, initial encounter (principal); I10 Essential (primary) hypertension; E78.5 Hyperlipidemia, unspecified; Z98.890 Other specified postprocedural states; Z79.899 Other long term (current) drug therapy; X58.XXXA Exposure to other specified factors, initial encounter
CPT/HCPCS: 29880; J2250; J1100; J0690; J2405; J2001; J3010; J2704; J1170; J0665

== ENCOUNTER 2024-06-21 18:51 | Observation (INO) | payer MEDICARE ==
--- NOTE | 2024-06-21 19:59 | ED ---
GI Bleed HPI - General Chief complaint: GI Bleed Stated complaint: rectal bleeding Time Seen by Provider: 06/21/24 19:50 Source: patient, RN notes reviewed Mode of arrival: ambulatory Limitations: no limitations - History of Present Illness Initial comments: This is a 73-year-old female who presents to the emergency department for abdominal pain and rectal bleeding. Patient states that she was hospitalized last year for colitis and is concerned that she is having another episode of this. She was having nausea and diarrhea yesterday, and today she started to notice bright red blood mixed in with her stool. She has generalized abdominal discomfort as well. Not taking any blood thinners. Symptoms are not as severe as they were last year, however she was told not to wait that long again if symptoms were to recur. - Related Data Home Medications Medication Instructions Recorded Confirmed Montelukast [Singulair] 10 mg PO DAILY 09/17/18 09/19/23 lisinopriL [Zestril] 10 mg PO QAM 09/17/18 09/19/23 traMADol HCL [Ultram] 50 mg PO BID 09/17/18 09/19/23 Vitamin C/Biotin [Hair, Skin and 1 tab PO DAILY 01/04/23 09/19/23 Nails Chew] oxyBUTYnin chloride [Ditropan] 5 mg PO QAM 01/04/23 09/19/23 Previous Rx's Medication Instructions Recorded Ondansetron Odt [Zofran Odt] 4 mg PO Q8HR PRN #20 tab 01/07/23 HYDROcodone/APAP 5-325MG [[place] 1 tab PO Q6HR PRN #12 tab 09/20/23 5-325] Allergies Allergy/AdvReac Type Severity Reaction Status Date / Time Mushroom AdvReac Rash/Hives Verified 06/21/24 19:18 Review of Systems ROS Statement: Those systems with pertinent positive or pertinent negative responses have been documented in the HPI. ROS Other: All systems not noted in ROS Statement are negative. Past Medical History Past Medical History: Asthma, Cancer, GERD/Reflux, Hyperlipidemia, Hypertension, Osteoarthritis (OA), Pneumonia Additional Past Medical History / Comment(s): hx. breast cancer with a lumpectomy on right side in 1999-had po chemo, urinary frequency, bilat cataracts with sx. History of Any Multi-Drug Resistant Organisms: None Reported Past Surgical History: Appendectomy, Breast Surgery, Joint Replacement Additional Past Surgical History / Comment(s): right side lumpectomy X3. lump removed from left side of neck x2, right TOTAL HIP REPLACEMENT (06/13/22) Past Anesthesia/Blood Transfusion Reactions: Postoperative Nausea & Vomiting (PONV) Additional Past Anesthesia/Blood Transfusion Reaction / Comment(s): hard time waking up Past Psychological History: No Psychological Hx Reported Past Drug Use History: Marijuana - Past Family History Mother Family Medical History: No Reported History Father Family Medical History: No Reported History General Exam Limitations: no limitations General appearance: alert, in no apparent distress Head exam: Present: atraumatic, normocephalic, normal inspection Respiratory exam: Present: normal lung sounds bilaterally. Absent: respiratory distress, wheezes, rales, rhonchi, stridor Cardiovascular Exam: Present: regular rate, normal rhythm, normal heart sounds. Absent: systolic murmur, diastolic murmur, rubs, gallop, clicks GI/Abdominal exam: Present: soft, tenderness (Lower abdomen), normal bowel sounds. Absent: distended Neurological exam: Present: alert, oriented X3, CN II-XII intact Psychiatric exam: Present: normal affect, normal mood Skin exam: Present: warm, dry, intact, normal color. Absent: rash Course Vital Signs 06/21/24 06/22/24 06/22/24 19:15 00:11 03:00 Temperature 98.1 F 98.1 F Pulse Rate 105 H 86 71 Respiratory 18 16 16 Rate Blood Pressure 117/76 127/85 123/67 O2 Sat by Pulse 98 100 99 Oximetry Medical Decision Making - Medical Decision Making This is a 73 year old female who presents to the emergency department for abdominal pain and rectal bleeding. Was pt. sent in by a medical professional or institution? @ -No Did you speak to anyone other than the patient for history? @ -No Did you review nursing and triage notes? @ -Yes, and I agree, it is accurate with regards to the patient's symptoms. Were old charts reviewed? @ -No Differential Diagnosis? @ -Differential Abdominal Pain Women: Appendicitis, Cholecystitis, diverticulosis, ischemic bowel, pancreatitis, hepatitis, UTI, gastroenteritis, AAA, incarcerated hernia, bowel obstruction, constipation, inflammatory bowel, hepatitis, peptic ulcer disease, splenic infarction, perforated viscus, vulvitis, ovarian torsion, PID, kidney stone, placenta abruption, this is not meant to be an all-inclusive list EKG interpreted by me (3pts min.)? @ -EKG interpreted by me demonstrating the following: Sinus rhythm. Ventricular rate 73 bpm, MI interval 193 ms, QRS duration 102 ms, QTc 423 ms. X-rays interpreted by me (1pt min.)? @ -Not obtained CT interpreted by me (1pt min.)? @ -CT scan of the abdomen and pelvis obtained. My interpretation identifies wall thickening of the transverse colon. U/S interpreted by me (1pt. min.)? @ -Not obtained What testing was considered but not performed? (CT, X-rays, U/S, labs)? Why? @ -None What meds were considered but not given? Why? @ -None Did you discuss the management of the patient with other professionals? @ -No Did you reconcile home meds? @ -No Was smoking cessation discussed for >3mins.? @ -No Was critical care preformed (if so, how long)? @ -No Were there social determinants of health that impacted care today? How? (Homelessness, low income, unemployed, alcoholism, drug addiction, transportation, low edu. Level, literacy, decrease access to med. care, shelter, rehab)? @ -No Was there de-escalation of care discussed even if they declined? (Discuss DNR or withdrawal of care, Hospice)? @ -No What co-morbidities impacted this encounter? (DM, HTN, Smoking, COPD, CAD, Cancer, CVA, Hep., AIDS, mental health diagnosis, sleep apnea, morbid obesity)? @ -None Was patient admitted / discharged? @ -Admitted. Lab work demonstrates leukocytosis with a white blood cell count of 15.3 as well as signs of dehydration. CT scan of the abdomen and pelvis obtained demonstrating circumferential wall thickening involving the transverse and descending colon with pericolonic fat stranding consistent with nonspecific colitis, likely infectious or inflammatory. This is similar in appearance to her prior CT. Patient's lab work and symptoms are overall less severe than they were during that hospitalization. During that hospitalization she responded very well to IV antibiotic management, bowel rest, and fluid therapy. She did not require any GI intervention or scope on an inpatient basis. Patient was not comfortable going home and states that she would prefer to remain in the hospital for the meantime until she starts to feel better. Patient subsequently admitted to medicine for nonspecific colitis. Patient started on IV Levaquin and Flagyl. Maintenance fluids initiated as well. Will keep her on clear liquid diet for the meantime. Consult placed for general surgery. Case discussed with ED attending Dr. Vickers. Undiagnosed new problem with uncertain prognosis? @ -None Drug Therapy requiring intensive monitoring for toxicity (Heparin, Nitro, Insulin, Cardizem)? @ -None Were any procedures done? @ -None Diagnosis/symptom? @ -Nonspecific colitis Acute, or Chronic, or Acute on Chronic? @ -Acute Uncomplicated (without systemic symptoms) or Complicated (systemic symptoms)? @ -Complicated Side effects of treatment? @ -None Exacerbation, Progression, or Severe Exacerbation] @ -Not applicable Poses a threat to life or bodily function? @ -Yes, can lead to severe infection - Lab Data Result diagrams: 06/21/24 21:27 06/21/24 19:38 Lab Results 06/21/24 06/21/24 06/21/24 Range/Units 19:38 21:12 21:27 WBC 15.3 H (3.8-10.6) k/uL RBC 4.81 (3.80-5.40) m/uL Hgb 13.5 (11.4-16.0) gm/dL Hct 41.4 (34.0-46.0) % MCV 86.1 (80.0-100.0) fL MCH 28.1 (25.0-35.0) pg MCHC 32.6 (31.0-37.0) g/dL RDW 12.9 (11.5-15.5) % Plt Count 287 (150-450) k/uL MPV 7.7 Neutrophils % 84 % Lymphocytes % 10 % Monocytes % 4 % Eosinophils % 1 % Basophils % 0 % Neutrophils # 12.8 H (1.3-7.7) k/uL Lymphocytes # 1.6 (1.0-4.8) k/uL Monocytes # 0.5 (0-1.0) k/uL Eosinophils # 0.2 (0-0.7) k/uL Basophils # 0.1 (0-0.2) k/uL PT (10.0-12.5) sec INR (<1.2) APTT (22.0-30.0) sec Sodium 139 (137-145) mmol/L Potassium 4.1 (3.5-5.1) mmol/L Chloride 101 (98-107) mmol/L Carbon Dioxide 27 (22-30) mmol/L Anion Gap 11 mmol/L BUN 30 H (7-17) mg/dL Creatinine 1.06 H (0.52-1.04) mg/dL Est GFR (CKD-EPI)AfAm 61 (>60 ml/min/1.73 sqM) Est GFR (CKD-EPI)NonAf 53 (>60 ml/min/1.73 sqM) Glucose 111 H (74-99) mg/dL Plasma Lactic Acid Andrew 1.2 (0.7-2.0) mmol/L Calcium 9.8 (8.4-10.2) mg/dL Total Bilirubin 0.7 (0.2-1.3) mg/dL AST 27 (14-36) U/L ALT 24 (4-34) U/L Alkaline Phosphatase 71 (38-126) U/L Total Protein 7.8 (6.3-8.2) g/dL Albumin 4.8 (3.5-5.0) g/dL 06/21/24 Range/Units 21:27 WBC (3.8-10.6) k/uL RBC (3.80-5.40) m/uL Hgb (11.4-16.0) gm/dL Hct (34.0-46.0) % MCV (80.0-100.0) fL MCH (25.0-35.0) pg MCHC (31.0-37.0) g/dL RDW (11.5-15.5) % Plt Count (150-450) k/uL MPV Neutrophils % % Lymphocytes % % Monocytes % % Eosinophils % % Basophils % % Neutrophils # (1.3-7.7) k/uL Lymphocytes # (1.0-4.8) k/uL Monocytes # (0-1.0) k/uL Eosinophils # (0-0.7) k/uL Basophils # (0-0.2) k/uL PT 10.5 (10.0-12.5) sec INR 1.0 (<1.2) APTT 28.7 (22.0-30.0) sec Sodium (137-145) mmol/L Potassium (3.5-5.1) mmol/L Chloride (98-107) mmol/L Carbon Dioxide (22-30) mmol/L Anion Gap mmol/L BUN (7-17) mg/dL Creatinine (0.52-1.04) mg/dL Est GFR (CKD-EPI)AfAm (>60 ml/min/1.73 sqM) Est GFR (CKD-EPI)NonAf (>60 ml/min/1.73 sqM) Glucose (74-99) mg/dL Plasma Lactic Acid Andrew (0.7-2.0) mmol/L Calcium (8.4-10.2) mg/dL Total Bilirubin (0.2-1.3) mg/dL AST (14-36) U/L ALT (4-34) U/L Alkaline Phosphatase (38-126) U/L Total Protein (6.3-8.2) g/dL Albumin (3.5-5.0) g/dL - Radiology Data Radiology results: report reviewed, image reviewed Disposition Clinical Impression: Nonspecific colitis Disposition: ADMITTED IP TO THIS HOSP
[2024-06-21 21:36] LABS: Basophils # (A) 0.1 k/uL (0-0.2); Basophils % (A) 0 %; Eosinophils # (A) 0.2 k/uL (0-0.7); Eosinophils % (A) 1 %; HCT 41.4 % (34.0-46.0); HGB 13.5 gm/dL (11.4-16.0); Lymphocytes # (A) 1.6 k/uL (1.0-4.8); Lymphocytes % (A) 10 %; MCH 28.1 pg (25.0-35.0); MCHC 32.6 g/dL (31.0-37.0); MCV 86.1 fL (80.0-100.0); Mean Platelet Volume 7.7; Monocytes # (A) 0.5 k/uL (0-1.0); Monocytes % (A) 4 %; Neutrophils # (A) 12.8 k/uL (1.3-7.7); Neutrophils % (A) 84 %; Platelet Count 287 k/uL (150-450); RBC 4.81 m/uL (3.80-5.40); RDW 12.9 % (11.5-15.5); WBC 15.3 k/uL (3.8-10.6)
[2024-06-21 21:53] LABS: Partial Thromboplastin Time 28.7 sec (22.0-30.0); Prothrombin Time 10.5 sec (10.0-12.5)
[2024-06-21 22:10] LABS: ALT 24 U/L (4-34); AST 27 U/L (14-36); African American GFR (CKD) 61 (>60 ml/min/1.73 sqM); Albumin 4.8 g/dL (3.5-5.0); Alkaline Phosphatase 71 U/L (38-126); Anion Gap 11 mmol/L; Blood Urea Nitrogen 30 mg/dL (7-17); Calcium 9.8 mg/dL (8.4-10.2); Carbon Dioxide 27 mmol/L (22-30); Chloride 101 mmol/L (98-107); Glucose 111 mg/dL (74-99); Non-African American GFR(CKD) 53 (>60 ml/min/1.73 sqM); Potassium 4.1 mmol/L (3.5-5.1); Sodium 139 mmol/L (137-145); Total Bilirubin 0.7 mg/dL (0.2-1.3); Total Protein 7.8 g/dL (6.3-8.2)
[2024-06-22] MEDS: SODIUM CHLORIDE 0.9% 1,000 ML IV STA (01:56)
[2024-06-22] MEDS: MORPHINE SULFATE 4 MG/ML SYRINGE IVP STA (01:56)
--- NOTE | 2024-06-22 02:38 | CT ---
EXAM: CT Abdomen and Pelvis With Intravenous Contrast CLINICAL HISTORY: ITS.REASON CT Reason: Abdominal pain, blood in stool TECHNIQUE: Axial computed tomography images of the abdomen and pelvis with intravenous contrast. CTDI is 16.5 mGy and DLP is 747.9 mGy-cm. This CT exam was performed using one or more of the following dose reduction techniques: automated exposure control, adjustment of the mA and/or kV according to patient size, and/or use of iterative reconstruction technique. Delayed imaging is performed. COMPARISON: 01/04/23 FINDINGS: Lung bases: Unremarkable. ABDOMEN: Liver: Stable benign hepatic cysts. Gallbladder and bile ducts: Partially contracted gallbladder. No calcified stones. No ductal dilation. Pancreas: Unremarkable. No mass. No ductal dilation. Spleen: Unremarkable. No splenomegaly. Adrenals: Unremarkable. No mass. Kidneys and ureters: No hydronephrosis. Simple left kidney cyst; no follow-up indicated. Stomach and bowel: No bowel obstruction. Circumferential wall thickening involving the transverse and descending colon with pericolic fat stranding. Sigmoid diverticulosis without diverticulitis. PELVIS: Appendix: Appendix not identified. Bladder: Decompressed urinary bladder. Reproductive: Unremarkable as visualized. Normal uterus. Pessary in place. ABDOMEN and PELVIS: Intraperitoneal space: Unremarkable. No free air, significant free fluid, or fluid collection. Bones/joints: Right total hip arthroplasty. Facet degeneration in the lumbar spine. No acute fracture. No dislocation. Soft tissues: Unremarkable. Vasculature: Unremarkable. No aortic aneurysm. Lymph nodes: Unremarkable. No enlarged lymph nodes. IMPRESSION: Circumferential wall thickening involving the transverse and descending colon with pericolic fat stranding. Appearance is consistent with nonspecific colitis, favor infectious or inflammatory, but ischemic colitis is not excluded. Appearance is similar to prior CT.
[2024-06-22] MEDS ORDERED: NALOXONE 0.4 MG/ML 1 ML VIAL IV PRN (02:53)
[2024-06-22] MEDS ORDERED: HYDROcodone/APAP 5-325MG 1 EACH TAB PO PRN (02:53)
[2024-06-22] MEDS ORDERED: MORPHINE SULFATE 4 MG/ML SYRINGE IV PRN (02:53)
[2024-06-22] MEDS ORDERED: ACETAMINOPHEN TAB 325 MG TAB PO PRN (02:53)
[2024-06-22] MEDS ORDERED: ONDANSETRON 4 MG/2 ML VIAL IVP PRN (02:53)
[2024-06-22] MEDS ORDERED: metroNIDAZOLE-NS PMX 500 MG in SALINE 1 100ML.BAG IVPB SCH (03:00)
[2024-06-22] MEDS: LEVOFLOXACIN 750MG-D5W PMX 750 MG in DEXTROSE/WATER 1 150ML.BAG IVPB SCH (03:17)
[2024-06-22] MEDS: SODIUM CHLORIDE 0.9% 1,000 ML IV SCH (04:09)
[2024-06-22] MEDS: metroNIDAZOLE-NS PMX 500 MG in SALINE 1 100ML.BAG IVPB SCH (04:48)
[2024-06-22] MEDS: PANTOPRAZOLE 40 MG/10 ML VIAL IV SCH (08:38)
--- NOTE | 2024-06-22 13:25 | P.HPIM ---
History of Present Illness H&P Date: 06/22/24 History of present illness; patient is 73-year-old lady with past medical history significant for hypertension who presented to the ER because of abdominal pain and rectal bleeding. Patient said that she was all right 1 day back when she started complaining of nausea and diarrhea, later on she started noticing that there was bright red blood in her stool. Patient was complaining of generalized abdominal cramps. Denies any fever or chills. There was no complaint of lightheadedness or dizziness. Patient history of colitis for which she was treated a year back. Because of the symptoms, patient came to the ER Initial lab work done in the ER showed WBC 15.3, hemoglobin 13.5, platelet count 287, sodium 139, potassium 4.1, BUN 30, creatinine 1.06, glucose 111 AST 27, ALT 24 EKG done in the ER showed heart rate of 73, no ST segment elevation or depression seen, no T-wave inversions seen. CT abdomen pelvis done showed circumferential wall thickening involving the transverse and descending colon with pericolic fat stranding, appearance is consistent with nonspecific colitis favoring infectious or inflammatory. Patient admitted to internal medicine service REVIEW OF SYSTEMS: CONSTITUTIONAL: No fever, no malaise, no fatigue. HEENT: No recent visual problems or hearing problems. Denied any sore throat. CARDIOVASCULAR: No chest pain, orthopnea, PND, no palpitations, no syncope. PULMONARY: No shortness of breath, no cough, no hemoptysis. GASTROINTESTINAL: As mentioned above NEUROLOGICAL: No headaches, no weakness, no numbness. HEMATOLOGICAL: Denies any bleeding or petechiae. GENITOURINARY: Denies any burning micturition, frequency, or urgency. MUSCULOSKELETAL/RHEUMATOLOGICAL: Denies any joint pain, swelling, or any muscle pain. ENDOCRINE: Denies any polyuria or polydipsia. The rest of the 14-point review of systems is negative. PHYSICAL EXAMINATION: GENERAL: The patient is alert and oriented x3, not in any acute distress. Well developed, well nourished. HEENT: Pupils are round and equally reacting to light. EOMI. No scleral icterus. No conjunctival pallor. Normocephalic, atraumatic. No pharyngeal erythema. No thyromegaly. CARDIOVASCULAR: S1 and S2 present. No murmurs, rubs, or gallops. PULMONARY: Chest is clear to auscultation, no wheezing or crackles. ABDOMEN: Soft, nontender, nondistended, normoactive bowel sounds. No palpable organomegaly. MUSCULOSKELETAL: No joint swelling or deformity. EXTREMITIES: No cyanosis, clubbing, or pedal edema. NEUROLOGICAL: Gross neurological examination did not reveal any focal deficits. SKIN: No rashes. Assessment and plan Acute colitis Hypertension Hyperlipidemia Monitor vital signs Monitor CBC Monitor CMP Ordered stool for C. difficile Ordered stool cultures Start IV Protonix Start IV Levaquin and Flagyl Consult surgery Consult ID Labs and medication were reviewed.. Continue same treatment. Continue with symptomatic treatment. Resume home medication. Monitor labs and vitals. DVT and GI prophylaxis. Further recommendations as per clinical course of the patient Dictation was produced using [employer] dictation software. please excuse any grammatical, word or spelling errors. Past Medical History Past Medical History: Asthma, Cancer, GERD/Reflux, Hyperlipidemia, Hypertension, Osteoarthritis (OA), Pneumonia Additional Past Medical History / Comment(s): hx. breast cancer with a lumpectomy on right side in 1999-had po chemo, urinary frequency, bilat cataracts with sx. History of Any Multi-Drug Resistant Organisms: None Reported Past Surgical History: Appendectomy, Breast Surgery, Joint Replacement Additional Past Surgical History / Comment(s): right side lumpectomy X3. lump removed from left side of neck x2, right TOTAL HIP REPLACEMENT (06/13/22) Past Anesthesia/Blood Transfusion Reactions: Postoperative Nausea & Vomiting (PONV) Additional Past Anesthesia/Blood Transfusion Reaction / Comment(s): hard time waking up Past Psychological History: No Psychological Hx Reported Smoking Status: Former smoker Past Alcohol Use History: Occasional Additional Past Alcohol Use History / Comment(s): quit smoking in her 40's, started @age of 11, didn't smoke daily Past Drug Use History: Marijuana Additional Drug Use History / Comment(s): occasional use not recent - Past Family History Mother Family Medical History: No Reported History Father Family Medical History: No Reported History Medications and Allergies Home Medications Medication Instructions Recorded Confirmed Type Montelukast [Singulair] 10 mg PO DAILY 09/17/18 06/22/24 History lisinopriL [Zestril] 10 mg PO DAILY 09/17/18 06/22/24 History traMADol HCL [Ultram] 50 mg PO TID PRN 09/17/18 06/22/24 History oxyBUTYnin chloride [Ditropan] 5 mg PO DAILY 01/04/23 06/22/24 History Aspirin EC [Ecotrin Low Dose] 81 mg PO DAILY 06/22/24 06/22/24 History Cetirizine HCl [Zyrtec] 10 mg PO DAILY 06/22/24 06/22/24 History Lansoprazole 15 mg PO DAILY 06/22/24 06/22/24 History Lovastatin [Mevacor] 20 mg PO DAILY 06/22/24 06/22/24 History Allergies Allergy/AdvReac Type Severity Reaction Status Date / Time Mushroom AdvReac Rash/Hives Verified 06/22/24 10:12 Physical Exam Vitals: Vital Signs Temp Pulse Pulse Resp BP BP Pulse Ox 06/22/24 10:15 98.6 F 72 18 133/79 100 06/22/24 09:36 97.9 F 75 18 128/72 99 06/22/24 08:47 74 18 124/75 100 06/22/24 07:00 68 16 102/61 99 06/22/24 03:00 71 16 123/67 99 06/22/24 00:11 98.1 F 86 16 127/85 100 06/21/24 19:15 98.1 F 105 H 18 117/76 98 Intake and Output 06/21/24 06/22/24 06/22/24 22:59 06:59 14:59 Other: Voiding Method Toilet Weight 63.503 kg 63.503 kg Results CBC & Chem 7: 06/21/24 21:27 06/21/24 19:38 Labs: Abnormal Lab Results - Last 24 Hours (Table) 06/21/24 06/21/24 Range/Units 19:38 21:27 WBC 15.3 H (3.8-10.6) k/uL Neutrophils # 12.8 H (1.3-7.7) k/uL BUN 30 H (7-17) mg/dL Creatinine 1.06 H (0.52-1.04) mg/dL Glucose 111 H (74-99) mg/dL Thrombosis Risk Factor Assmnt - Choose All That Apply Each Factor Represents 1 point: Obesity (BMI >25), Varicose veins Each Risk Factor Represents 2 Points: Age 61-74 years Thrombosis Risk Factor Assessment Total Risk Factor Score: 4 Thrombosis Risk Factor Assessment Level: Moderate Risk
[2024-06-22] MEDS: oxyBUTYnin chloride 5 MG TAB PO SCH (16:27)
[2024-06-22] MEDS: LORATADINE 10 MG TAB PO SCH (16:27)
[2024-06-22] MEDS: ATORVASTATIN 10 MG TAB PO SCH (16:27)
[2024-06-22] MEDS: lisinopriL 10 MG TAB PO SCH (16:28)
[2024-06-22] MEDS: MONTELUKAST 10 MG TAB PO SCH (16:28)
--- NOTE | 2024-06-22 17:08 | P.GSCN ---
History of Present Illness Consult date: 06/22/24 History of present illness: CHIEF COMPLAINT: Rectal bleeding with colitis HISTORY OF PRESENT ILLNESS: The patient is a 73-year-old female who reports recurrent episode of rectal bleeding with colitis. She reports bleeding had occurred within the last 3 days and promptly presented to the emergency room for further assessment. Last event was a year ago resulting in hospitalization, prolonged antibiotics including colonoscopy biopsies being obtained. Patient confirms low appetite in the past 1 to 2 months where she has been drinking boost. She reports abdominal cramping on this hospitalization. Patient reports prior episode 1 year ago had a colonoscopy. Colonoscopy reviewed demonstrating findings consistent with ischemic colitis versus colitis. Pathology report also confirmed colitis. She has had had low appetite for several weeks. Family is at bedside reports she eats a low amount of protein. Surgery is consulted for rectal bleeding with colitis. PAST MEDICAL HISTORY: See list and reviewed PAST SURGICAL HISTORY: See list and reviewed MEDICATIONS: See list and reviewed ALLERGIES: See list and reviewed SOCIAL HISTORY: See list and reviewed FAMILY HISTORY: See list and reviewed REVIEW OF ORGAN SYSTEMS: CONSTITUTIONAL: No fevers or chills. EYES: Denies any trouble with vision. No glasses. HEENT: No difficulties with hearing. No nosebleeds. No difficulty swallowing. RESPIRATORY: Has asthma. Past history of pneumonia. CARDIOVASCULAR: Has hyperlipidemia. Has gastroesophageal reflux disease. Has hypertensive heart disease. GASTROINTESTINAL: Has change in bowel habits with diarrhea and rectal bleeding. History of colitis 1 year ago. Postop nausea and vomiting from anesthesia. Has gastroesophageal reflux disease. GENITOURINARY: Denies any blood in urine. Has increased urinary frequency. NEUROLOGICAL: Denies any numbness or tingling along the distal extremities. No seizure disorders or headaches. MUSCULOSKELETAL: Has back pain, stiffness or joint arthritis. Has total hip replacement. SKIN: No current skin cancer. No rash. PSYCHIATRIC: Denies current depression or suicidal thoughts. ENDOCRINE: Denies current thyroid disorders. Denies any blood sugar glucose intolerance. HEME/LYMPHATIC: Denies any lumps and bumps around the neck. No recent deep venous thrombosis. ALLERGY/IMMUNOLOGY: No immunoglobulin therapy. No immune deficiencies. BREAST: Had a lumpectomy for breast cancer. PHYSICAL EXAM: VITALS: Reviewed CONSTITUTIONAL: Well developed and in no acute distress. EYES: Conjuctivae without sclera icterus. Extraocular movements grossly intact. HEAD, EARS, NOSE, THROAT: Moist buccal mucosa. Head is atraumatic, normocephalic. Hears conversational speech. No nasal drainage. NECK: Supple. No JV distention. No thyroidomegaly. RESPIRATORY: Non-labored respirations and equal bilateral excursions. No gross wheezes. CARDIOVASCULAR: Palpable 2+ radial pulses. ABDOMEN: No diffuse peritonitis. Mild diffuse tenderness. LYMPH: No neck lymphadenopathy. MUSCULOSKELETAL: No clubbing cyanosis or edema SKIN: Warm and well perfused with good skin turgor. NEUROLOGIC: Cranial nerves II through XII grossly intact. No focal or lateralizing signs. PSYCH: Appropriate affect. Alert and oriented to person, place and time. Displays appropriate insight. CLINCAL LABS: Reviewed. WBC elevated at 15,000, leukocytosis. IMAGING: Independently reviewed. CT of the abdomen pelvis demonstrates desce nding transverse and colitis including involving the descending colon and sigmoid colon. No free air. This is my independent interpretation. RADIOLOGY: Report reviewed. RECORDS: previous old records reviewed with pathology report reviewed February 2023 demonstrates resolving colitis diverticulitis versus ischemic colitis. Colonoscopy performed February 2023 demonstrates transverse and descending colon colitis with biopsies obtained. ASSESSMENT: 1. Abdominal pain due to colitis with rectal bleeding 2. Hypertensive heart disease PLAN: 1. IV fluid hydration. 2. Recommend intravenous antibiotics with broad coverage including Zosyn/Flagyl. 3. No need for repeat colonoscopy due to recurrent attack from a year ago. 4. Stool cultures pending. 5. Will avoid high-fiber diet. 6. May have teas, protein shakes and anticipated disposition 72 hours ADVANCE DIRECTIVE: CODE STATUS in chart Thank you for this kind consultation. Past Medical History Past Medical History: Asthma, Cancer, GERD/Reflux, Hyperlipidemia, Hypertension, Osteoarthritis (OA), Pneumonia Additional Past Medical History / Comment(s): hx. breast cancer with a lumpectomy on right side in 1999-had po chemo, urinary frequency, bilat cataracts with sx. History of Any Multi-Drug Resistant Organisms: None Reported Past Surgical History: Appendectomy, Breast Surgery, Joint Replacement Additional Past Surgical History / Comment(s): right side lumpectomy X3. lump removed from left side of neck x2, right TOTAL HIP REPLACEMENT (06/13/22) Past Anesthesia/Blood Transfusion Reactions: Postoperative Nausea & Vomiting (PONV) Additional Past Anesthesia/Blood Transfusion Reaction / Comm: hard time waking up Past Psychological History: No Psychological Hx Reported Smoking Status: Former smoker Past Alcohol Use History: Occasional Additional Past Alcohol Use History / Comment(s): quit smoking in her 40's, started @age of 11, didn't smoke daily Past Drug Use History: Marijuana Additional Drug Use History / Comment(s): occasional use not recent - Past Family History Mother Family Medical History: No Reported History Father Family Medical History: No Reported History Medications and Allergies Home Medications Medication Instructions Recorded Confirmed Type Montelukast [Singulair] 10 mg PO DAILY 09/17/18 06/22/24 History lisinopriL [Zestril] 10 mg PO DAILY 09/17/18 06/22/24 History traMADol HCL [Ultram] 50 mg PO TID PRN 09/17/18 06/22/24 History oxyBUTYnin chloride [Ditropan] 5 mg PO DAILY 01/04/23 06/22/24 History Aspirin EC [Ecotrin Low Dose] 81 mg PO DAILY 06/22/24 06/22/24 History Cetirizine HCl [Zyrtec] 10 mg PO DAILY 06/22/24 06/22/24 History Lansoprazole 15 mg PO DAILY 06/22/24 06/22/24 History Lovastatin [Mevacor] 20 mg PO DAILY 06/22/24 06/22/24 History Allergies Allergy/AdvReac Type Severity Reaction Status Date / Time Mushroom AdvReac Rash/Hives Verified 06/22/24 10:12 Surgical - Exam Vital Signs Temp Pulse Resp BP Pulse Ox 98.1 F 105 H 18 117/76 98 06/21/24 19:15 06/21/24 19:15 06/21/24 19:15 06/21/24 19:15 06/21/24 19:15 Results - Labs 06/21/24 21:27 06/21/24 19:38 Abnormal Lab Results - Last 24 Hours (Table) 06/21/24 06/21/24 Range/Units 19:38 21:27 WBC 15.3 H (3.8-10.6) k/uL Neutrophils # 12.8 H (1.3-7.7) k/uL BUN 30 H (7-17) mg/dL Creatinine 1.06 H (0.52-1.04) mg/dL Glucose 111 H (74-99) mg/dL Diabetes panel 06/21/24 Range/Units 19:38 Sodium 139 (137-145) mmol/L Potassium 4.1 (3.5-5.1) mmol/L Chloride 101 (98-107) mmol/L Carbon Dioxide 27 (22-30) mmol/L BUN 30 H (7-17) mg/dL Creatinine 1.06 H (0.52-1.04) mg/dL Glucose 111 H (74-99) mg/dL Calcium 9.8 (8.4-10.2) mg/dL AST 27 (14-36) U/L ALT 24 (4-34) U/L Alkaline Phosphatase 71 (38-126) U/L Total Protein 7.8 (6.3-8.2) g/dL Albumin 4.8 (3.5-5.0) g/dL Calcium panel 06/21/24 Range/Units 19:38 Calcium 9.8 (8.4-10.2) mg/dL Albumin 4.8 (3.5-5.0) g/dL Pituitary panel 06/21/24 Range/Units 19:38 Sodium 139 (137-145) mmol/L Potassium 4.1 (3.5-5.1) mmol/L Chloride 101 (98-107) mmol/L Carbon Dioxide 27 (22-30) mmol/L BUN 30 H (7-17) mg/dL Creatinine 1.06 H (0.52-1.04) mg/dL Glucose 111 H (74-99) mg/dL Calcium 9.8 (8.4-10.2) mg/dL Adrenal panel 06/21/24 Range/Units 19:38 Sodium 139 (137-145) mmol/L Potassium 4.1 (3.5-5.1) mmol/L Chloride 101 (98-107) mmol/L Carbon Dioxide 27 (22-30) mmol/L BUN 30 H (7-17) mg/dL Creatinine 1.06 H (0.52-1.04) mg/dL Glucose 111 H (74-99) mg/dL Calcium 9.8 (8.4-10.2) mg/dL Total Bilirubin 0.7 (0.2-1.3) mg/dL AST 27 (14-36) U/L ALT 24 (4-34) U/L Alkaline Phosphatase 71 (38-126) U/L Total Protein 7.8 (6.3-8.2) g/dL Albumin 4.8 (3.5-5.0) g/dL
[2024-06-22] MEDS: MELATONIN 5 MG TABLET PO PRN (20:41)
[2024-06-22] MEDS: SIMETHICONE 40 MG/0.6 ML DROPS 2,000 MG/30 ML BOTTLE PO SCH (20:41)
--- NOTE | 2024-06-22 23:00 | P.CONS ---
History of Present Illness - Reason for Consult Consult date: 06/22/24 Colitis Requesting physician: Ck Lira - Chief Complaint Abdominal pain diarrhea x 3 days - History of Present Illness Patient is a 73-year-old female with a past medical history significant for hypertension hyperlipidemia reflux asthma right breast cancer patient did have an admission to the [facility] in December 2022 at that point she was diagnosed with a colitis with concern for possible ischemic versus infectious, patient was treated with broad-spectrum antibiotic and subsequently did have a colonoscopy in February 2023 with concern for resolving colitis did not give any specific diagnosis. Patient now presenting back to the hospital concerning for abdominal pain diarrhea and bleeding per rectum her symptoms started about 3 to 4 days before presentation to the hospital with a crampy lower abdominal pain moderate in intensity nausea but no vomiting and is not having diarrhea subsequently. Noted to have some blood in the stool that concerned her and she presented to the hospital patient denies high-grade fever or any chills and did not have any recent antibiotic exposure on presentation to the hospital the patient was afebrile and no fever have been recorded subsequently patient was not tachycardic hypotensive or hypoxic she did have a white count of 15.3 with a left shift BUN and creatinine has been mildly elevated liver enzymes are normal patient did have abdominal pelvis CT circumferential wall thickening involving the transverse and descending colon with pericolonic fat stranding patient was started on Levaquin and Flagyl infectious disease was consulted for further management of antibiotic therapy Review of Systems Positive point and negatives has been mentioned in the HPI, complete review of systems was performed and all other systems are negative Past Medical History Past Medical History: Asthma, Cancer, GERD/Reflux, Hyperlipidemia, Hypertension, Osteoarthritis (OA), Pneumonia Additional Past Medical History / Comment(s): hx. breast cancer with a lumpectomy on right side in 1999-had po chemo, urinary frequency, bilat thea racts with sx. History of Any Multi-Drug Resistant Organisms: None Reported Past Surgical History: Appendectomy, Breast Surgery, Joint Replacement Additional Past Surgical History / Comment(s): right side lumpectomy X3. lump removed from left side of neck x2, right TOTAL HIP REPLACEMENT (06/13/22) Past Anesthesia/Blood Transfusion Reactions: Postoperative Nausea & Vomiting (PONV) Additional Past Anesthesia/Blood Transfusion Reaction / Comm: hard time waking up Past Psychological History: No Psychological Hx Reported Smoking Status: Former smoker Past Alcohol Use History: Occasional Additional Past Alcohol Use History / Comment(s): quit smoking in her 40's, started @age of 11, didn't smoke daily Past Drug Use History: Marijuana Additional Drug Use History / Comment(s): occasional use not recent - Past Family History Mother Family Medical History: No Reported History Father Family Medical History: No Reported History Medications and Allergies Home Medications Medication Instructions Recorded Confirmed Type Montelukast [Singulair] 10 mg PO DAILY 09/17/18 06/22/24 History lisinopriL [Zestril] 10 mg PO DAILY 09/17/18 06/22/24 History traMADol HCL [Ultram] 50 mg PO TID PRN 09/17/18 06/22/24 History oxyBUTYnin chloride [Ditropan] 5 mg PO DAILY 01/04/23 06/22/24 History Aspirin EC [Ecotrin Low Dose] 81 mg PO DAILY 06/22/24 06/22/24 History Cetirizine HCl [Zyrtec] 10 mg PO DAILY 06/22/24 06/22/24 History Lansoprazole 15 mg PO DAILY 06/22/24 06/22/24 History Lovastatin [Mevacor] 20 mg PO DAILY 06/22/24 06/22/24 History Allergies Allergy/AdvReac Type Severity Reaction Status Date / Time Mushroom AdvReac Rash/Hives Verified 06/22/24 10:12 Physical Exam Vitals: Vital Signs Temp Pulse Pulse Resp BP BP Pulse Ox 06/22/24 10:15 98.6 F 72 18 133/79 100 06/22/24 09:36 97.9 F 75 18 128/72 99 06/22/24 08:47 74 18 124/75 100 06/22/24 07:00 68 16 102/61 99 06/22/24 03:00 71 16 123/67 99 06/22/24 00:11 98.1 F 86 16 127/85 100 06/21/24 19:15 98.1 F 105 H 18 117/76 98 Intake and Output 06/21/24 06/22/24 06/22/24 22:59 06:59 14:59 Other: Voiding Method Toilet Weight 63.503 kg 63.503 kg GENERAL DESCRIPTION: Elderly female lying in bed, no distress. No tachypnea or accessory muscle of respiration use. HEENT: Shows Pallor , no scleral icterus. Oral mucous membrane is dry. No pharyngeal erythema or thrush NECK: Trachea central, no thyromegaly. LUNGS: Unlabored breathing. Clear to auscultation anteriorly. No wheeze or crackle. HEART: S1, S2, regular rate and rhythm. No loud murmur ABDOMEN: Soft, no tenderness , guarding or rigidity, no organomegaly EXTREMITIES: No edema of feet. SKIN: No rash, no masses palpable. NEUROLOGICAL: The patient is awake, alert, oriented x3, mood and affect normal. Results CBC & Chem 7: 06/21/24 21:27 06/21/24 19:38 Labs: Abnormal Lab Results - Last 24 Hours (Table) 06/21/24 06/21/24 Range/Units 19:38 21:27 WBC 15.3 H (3.8-10.6) k/uL Neutrophils # 12.8 H (1.3-7.7) k/uL BUN 30 H (7-17) mg/dL Creatinine 1.06 H (0.52-1.04) mg/dL Glucose 111 H (74-99) mg/dL Assessment and Plan (1) Colitis Current Visit: No Status: Acute Code(s): K52.9 - NONINFECTIVE GASTROENTERITIS AND COLITIS, UNSPECIFIED SNOMED Code(s): 49264654 (2) Leukocytosis Current Visit: No Status: Acute Code(s): D72.829 - ELEVATED WHITE BLOOD CELL COUNT, UNSPECIFIED SNOMED Code(s): 428503071 Plan: 1patient presented to hospital with abdominal pain diarrhea and now with evidence of hematochezia abnormal CT concerning for colitis questionably isch emic versus infectious colitis. 2we will check a stool for C. difficile and stool culture 3discontinue Levaquin start the patient on Rocephin 2 g daily and continue with the Flagyl 4avoid antimotility agents We will follow on clinical condition and cultures to further adjust medication if needed Thank you for this consultation we will follow the patient along with you Dictation was produced using [employer] dictation software. please excuse any grammatical, word or spelling errors. Time with Patient: Greater than 30
[2024-06-23] MEDS ORDERED: LANSOPRAZOLE 15 MG PO SCH (09:00)
[2024-06-23] MEDS ORDERED: LEVOFLOXACIN 750MG-D5W PMX 750 MG in DEXTROSE/WATER 1 150ML.BAG IVPB SCH (09:00)
[2024-06-23 09:39] LABS: Basophils # (A) 0.03 X 10*3/uL (0.00-0.10); Basophils % (A) 0.4 %; Eosinophils # (A) 0.16 X 10*3/uL (0.04-0.35); Eosinophils % (A) 2.1 %; HCT 33.9 % (37.2-46.3); HGB 10.6 g/dL (12.0-15.0); Lymphocytes # (A) 1.46 X 10*3/uL (0.90-5.00); Lymphocytes % (A) 19.2 %; MCH 27.7 pg (27.0-32.0); MCHC 31.3 g/dL (32.0-37.0); MCV 88.7 FL (80.0-97.0); Mean Platelet Volume 10.6 FL (9.5-12.2); Monocytes # (A) 0.62 X 10*3/uL (0.20-1.00); Monocytes % (A) 8.2 %; NRBC Per 100 WBC 0 X 10*3/uL (0.00-0.01); Neutrophils # (A) 5.29 X 10*3/uL (1.80-7.70); Neutrophils % (A) 69.7 %; Platelet Count 208 X 10*3/uL (140-440); RBC 3.82 X 10*6/uL (4.10-5.20); RDW 13.1 % (11.5-14.5); WBC 7.59 X 10*3/uL (4.50-10.00)
--- NOTE | 2024-06-23 13:44 | P.PN ---
Subjective Progress Note Date: 06/23/24 patient is 73-year-old lady with past medical history significant for hypertension who presented to the ER because of abdominal pain and rectal bleeding. Patient said that she was all right 1 day back when she started complaining of nausea and diarrhea, later on she started noticing that there was bright red blood in her stool. Patient was complaining of generalized abdominal cramps. Denies any fever or chills. There was no complaint of lightheadedness or dizziness. Patient history of colitis for which she was treated a year back. Because of the symptoms, patient came to the ER Initial lab work done in the ER showed WBC 15.3, hemoglobin 13.5, platelet count 287, sodium 139, potassium 4.1, BUN 30, creatinine 1.06, glucose 111 AST 27, ALT 24 EKG done in the ER showed heart rate of 73, no ST segment elevation or depression seen, no T-wave inversions seen. CT abdomen pelvis done showed circumferential wall thickening involving the transverse and descending colon with pericolic fat stranding, appearance is consistent with nonspecific colitis favoring infectious or inflammatory. Patient admitted to internal medicine service 06/23. Patient seen and examined. States she feels much better. White count has improved to 7.59, hemoglobin 10.6, currently on clear liquid diet, advance to full liquid REVIEW OF SYSTEMS: CONSTITUTIONAL: No fever, no malaise,. CARDIOVASCULAR: No chest pain, no palpitations, no syncope. PULMONARY: No shortness of breath, no cough, GASTROINTESTINAL: No diarrhea, no nausea, no vomiting, no abdominal pain. NEUROLOGICAL: No headaches, no weakness, PHYSICAL EXAMINATION: GENERAL: The patient is alert and oriented x3, not in any acute distress. Well developed, well nourished. HEENT: Pupils are round and equally reacting to light. EOMI. No scleral icterus. No conjunctival pallor. Normocephalic, atraumatic. No pharyngeal erythema. No thyromegaly. CARDIOVASCULAR: S1 and S2 present. No murmurs, rubs, or gallops. PULMONARY: Chest is clear to auscultation, no wheezing or crackles. ABDOMEN: Soft, nontender, nondistended, normoactive bowel sounds. No palpable organomegaly. MUSCULOSKELETAL: No joint swelling or deformity. EXTREMITIES: No cyanosis, clubbing, or pedal edema. NEUROLOGICAL: Gross neurological examination did not reveal any focal deficits. SKIN: No rashes. Assessment and plan Acute colitis Hypertension Hyperlipidemia Monitor vital signs Monitor CBC Monitor CMP Ordered stool for C. difficile Ordered stool cultures Continue IV Protonix IV Rocephin and Flagyl Surgery following ID following Labs and medication were reviewed.. Continue same treatment. Continue with symptomatic treatment. Resume home medication. Monitor labs and vitals. DVT and GI prophylaxis. Further recommendations as per clinical course of the beni ent Dictation was produced using [employer] dictation software. please excuse any grammatical, word or spelling errors. Objective - Vital Signs Vital signs: Vital Signs Temp 98.1 F 06/23/24 07:00 Pulse 72 06/23/24 08:00 Resp 16 06/23/24 08:00 BP 121/75 06/23/24 07:00 Pulse Ox 97 06/23/24 07:00 FiO2 Intake & Output 06/22/24 06/23/24 06/23/24 18:59 06:59 18:59 Intake Total 474 480 118 Output Total 1 Balance 474 480 117 Weight 63.503 kg Intake: Oral 474 480 118 Output: Stool 1 Other: Voiding Method Toilet Toilet Toilet # Voids 3 1 - Labs CBC & Chem 7: 06/23/24 02:55 06/21/24 19:38 Labs: Abnormal Lab Results - Last 24 Hours (Table) 06/23/24 Range/Units 02:55 RBC 3.82 L (4.10-5.20) X 10*6/uL Hgb 10.6 L (12.0-15.0) g/dL Hct 33.9 L (37.2-46.3) % MCHC 31.3 L (32.0-37.0) g/dL
--- NOTE | 2024-06-23 15:00 | P.PN ---
Subjective Progress Note Date: 06/23/24 Principal diagnosis: Reason for follow-up is colitis Patient is a 73-year-old female with a past medical history significant for hypertension hyperlipidemia reflux asthma right breast cancer, colitis presented to the hospital with abdominal pain diarrhea and hematochezia with abnormal CT suggestive of colitis involving the transverse and descending colon. On today's evaluation that is 06/23/2024, the patient continues to be afebrile, the patient is on room air and breathing comfortably, the Pt denies having any chest pain or cough, the patient denies having any abdominal pain no vomiting and did have resolution of her diarrhea mention she did have a soft bowel movement. Patient white count 7.59 stool for C. difficile was negative. Objective - Vital Signs Vital signs: Vital Signs Temp 98.1 F 06/23/24 07:00 Pulse 72 06/23/24 08:00 Resp 16 06/23/24 08:00 BP 121/75 06/23/24 07:00 Pulse Ox 97 06/23/24 07:00 FiO2 Intake & Output 06/22/24 06/23/24 06/23/24 18:59 06:59 18:59 Intake Total 474 480 118 Output Total 1 Balance 474 480 117 Weight 63.503 kg Intake: Oral 474 480 118 Output: Stool 1 Other: Voiding Method Toilet Toilet Toilet # Voids 3 1 - Exam GENERAL DESCRIPTION: An elderly female Lying in bed in no distress RESPIRATORY SYSTEM: Unlabored breathing , decreased breath sounds at bases HEART: S1 S2 regular rate and rhythm , ABDOMEN: Soft , no tenderness EXTREMITIES: No edema feet - Labs CBC & Chem 7: 06/23/24 02:55 06/21/24 19:38 Labs: Abnormal Lab Results - Last 24 Hours (Table) 06/23/24 Range/Units 02:55 RBC 3.82 L (4.10-5.20) X 10*6/uL Hgb 10.6 L (12.0-15.0) g/dL Hct 33.9 L (37.2-46.3) % MCHC 31.3 L (32.0-37.0) g/dL Assessment and Plan (1) Colitis Current Visit: No Status: Acute Code(s): K52.9 - NONINFECTIVE GASTROENTERITIS AND COLITIS, UNSPECIFIED SNOMED Code(s): 79667483 (2) Leukocytosis Current Visit: No Status: Acute Code(s): D72.829 - ELEVATED WHITE BLOOD CELL COUNT, UNSPECIFIED SNOMED Code(s): 093481043 Plan: 1patient presented to hospital with abdominal pain diarrhea and now with evidence of hematochezia abnormal CT concerning for colitis questionably ischemic versus infectious colitis. 2 stool for C. difficile negative, stool culture currently pending 3patient to continue with Rocephin 2 g daily and Flagyl , avoid antimotility agents Dictation was produced using [employer] dictation software. please excuse any grammatical, word or spelling errors. Time with Patient: Less than 30
--- NOTE | 2024-06-23 17:23 | P.PN ---
Subjective Progress Note Date: 06/23/24 CHIEF COMPLAINT: Rectal bleeding with colitis HISTORY OF PRESENT ILLNESS: The patient is a 73-year-old female admitted for colitis. She has been on antibiotics in the low residue diet. Her abdominal pa in is completely resolved. Her diarrhea is resolved. Her white count is normal. She is tolerating diet. REVIEW OF ORGAN SYSTEMS: CARDIOVASCULAR: Has hyperlipidemia. Has gastroesophageal reflux disease. Has hypertensive heart disease. GASTROINTESTINAL: Has change in bowel habits with diarrhea and rectal bleeding. History of colitis 1 year ago. Postop nausea and vomiting from anesthesia. Has gastroesophageal reflux disease. PHYSICAL EXAM: VITALS: Reviewed CONSTITUTIONAL: Well developed and in no acute distress. EYES: Conjuctivae without sclera icterus. Extraocular movements grossly intact. HEAD, EARS, NOSE, THROAT: Moist buccal mucosa. Head is atraumatic, normocephalic. Hears conversational speech. No nasal drainage. RESPIRATORY: Non-labored respirations and equal bilateral excursions. No gross wheezes. CARDIOVASCULAR: Palpable 2+ radial pulses. ABDOMEN: No diffuse peritonitis. Mild diffuse tenderness. MUSCULOSKELETAL: No clubbing cyanosis or edema SKIN: Warm and well perfused with good skin turgor. NEUROLOGIC: Cranial nerves II through XII grossly intact. No focal or lateralizing signs. PSYCH: Appropriate affect. Alert and oriented to person, place and time. Displays appropriate insight. CLINCAL LABS: Reviewed. WBC elevated at 15,000, leukocytosis on admission and now normal. ASSESSMENT: 1. Abdominal pain due to colitis with rectal bleeding 2. Hypertensive heart disease PLAN: 1. She has done remarkably well and may be discharged tomorrow on low residue diet. 2. Antibiotic management per infectious disease. 3. Patient advised to drink protein shakes 60 to 80 g daily for optimal nutrition and recovery 4 Objective - Vital Signs Vital signs: Vital Signs Temp 98.2 F 06/23/24 15:00 Pulse 69 06/23/24 15:00 Resp 17 06/23/24 15:00 BP 142/79 06/23/24 15:00 Pulse Ox 99 06/23/24 15:00 FiO2 Intake & Output 06/22/24 06/23/24 06/23/24 18:59 06:59 18:59 Intake Total 474 480 118 Output Total 3 Balance 474 480 115 Weight 63.503 kg Intake: Oral 474 480 118 Output: Stool 3 Other: Voiding Method Toilet Toilet Toilet # Voids 3 3 - Labs CBC & Chem 7: 06/23/24 02:55 06/21/24 19:38 Labs: Abnormal Lab Results - Last 24 Hours (Table) 06/23/24 Range/Units 02:55 RBC 3.82 L (4.10-5.20) X 10*6/uL Hgb 10.6 L (12.0-15.0) g/dL Hct 33.9 L (37.2-46.3) % MCHC 31.3 L (32.0-37.0) g/dL
[2024-06-24 02:36] VITALS: TEMP 98.3
[2024-06-24 09:45] VITALS: BP 155/79; PULSE 70; RESP 16
--- NOTE | 2024-06-24 13:03 | P.PN ---
Subjective Progress Note Date: 06/24/24 CHIEF COMPLAINT: Colitis HISTORY OF PRESENT ILLNESS: Patient's abdominal pain has resolved. She is martha ating diet. She has had no further blood in her stools. She reports having bowel movements. Afebrile. WBC is down from 15.3-7.59. C. difficile is negative. PHYSICAL EXAM: VITAL SIGNS: Reviewed GENERAL: Well-developed in no acute distress. HEENT: No sclera icterus. Extraocular movements grossly intact. Moist buccal mucosa. Head is atraumatic, normocephalic. Hears conversational speech. No nasal drainage. NECK: Supple without lymphadenopathy. CHEST: Non-labored respirations and equal bilateral excursions. CARDIOVASCULAR: Palpable 2+ radial pulses. ABDOMEN: Soft. Nondistended. No peritonitis MUSCULOSKELETAL: No clubbing or cyanosis. NEUROLOGIC: No focal or lateralizing signs. Cranial nerves II through XII grossly intact. PSYCH: Appropriate affect. Alert and oriented to person, place and time. SKIN: Well perfused. Good skin turgor. ASSESSMENT: 1. Abdominal pain due to colitis with rectal bleeding 2. Hypertensive heart disease PLAN: -Patient is stable for discharge from surgical standpoint. She is tolerating diet and has had no further rectal bleeding. -Discharge antibiotics per ID service -Patient advised to drink protein shakes 60 to 80 g daily for optimal nutrition and recovery Physician Coordinating Producer note has been reviewed by physician. Signing provider agrees with the documented findings, assessment, and plan of care. Objective - Vital Signs Vital signs: Vital Signs Temp 98.3 F 06/24/24 07:00 Pulse 70 06/24/24 08:00 Resp 16 06/24/24 08:00 BP 155/79 06/24/24 07:00 Pulse Ox 100 06/24/24 07:00 FiO2 Intake & Output 06/23/24 06/24/24 06/24/24 18:59 06:59 18:59 Intake Total 118 118 Output Total 3 Balance 115 118 Intake: Oral 118 118 Output: Stool 3 Other: Voiding Method Toilet Toilet # Voids 3 1 - Labs CBC & Chem 7: 06/23/24 02:55 06/21/24 19:38
--- NOTE | 2024-06-25 15:20 | P.DS ---
Providers Date of admission: 06/22/24 02:47 Expected date of discharge: 06/24/24 Attending physician: Eric Cooney Consults: 06/22/24 02:53 Consult Physician Urgent Consulting Provider: Jessica Anderson Consult Reason/Comments: Nonspecific colitis Do you want consulting provider notified?: Yes 06/22/24 11:13 Consult Physician Routine Consulting Provider: Ambar Samuels Consult Reason/Comments: Colitis Do you want consulting provider notified?: Yes Primary care physician: Eric Cooney Hospital Course: Final Diagnoses: Abdominal pain with rectal bleeding secondary to acute colitis as per general surgery, type unclear. Hypertension Hyperlipidemia Hospital course: This is a 73-year-old female with past medical history significant for hypertension who presented to the ER because of abdominal pain and rectal bleeding. Patient said that she was all right 1 day back when she started complaining of nausea and diarrhea, later on she started noticing that there was bright red blood in her stool. Patient was complaining of generalized abdominal cramps. Denies any fever or chills. There was no complaint of lightheadedness or dizziness. Patient history of colitis for which she was treated a year back. Because of the symptoms, patient came to the ER Initial lab work done in the ER showed WBC 15.3, hemoglobin 13.5, platelet count 287, sodium 139, potassium 4.1, BUN 30, creatinine 1.06, glucose 111 AST 27, ALT 24 EKG done in the ER showed heart rate of 73, no ST segment elevation or depression seen, no T-wave inversions seen. CT abdomen pelvis done showed circumferential wall thickening involving the transverse and descending colon with pericolic fat stranding, appearance is consistent with nonspecific colitis favoring infectious or inflammatory. Patient admitted to internal medicine service 06/23. Patient seen and examined. States she feels much better. White count has improved to 7.59, hemoglobin 10.6, currently on clear liquid diet, advance to f ull liquid Afebrile ,C. difficile negative, continues on ceftriaxone and Flagyl, avoiding antimotility agents as per infectious disease. Positive diet intake .denies bloody stools. Significant clinical improvement. Cleared by both general surgery and infectious disease for discharge home. Patient will be discharged home today in a stable condition with guarded prognosis on Ceftin and Flagyl for 10 days as per infectious disease. The impression and plan of care has been dictated as directed. : I performed a history and examination of this patient, discussed the same with the dictator. I agree with the dictator's note ,documented as a scribe. Any additional findings or plans will be noted. Patient Condition at Discharge: Stable Plan - Discharge Summary New Discharge Prescriptions: New cefUROXime axetiL [Ceftin] 500 mg PO BID 10 Days #20 tab metroNIDAZOLE [Flagyl] 500 mg PO TID #30 tab Continue traMADol HCL [Ultram] 50 mg PO TID PRN PRN Reason: Pain Montelukast [Singulair] 10 mg PO DAILY lisinopriL [Zestril] 10 mg PO DAILY Lovastatin [Mevacor] 20 mg PO DAILY Lansoprazole 15 mg PO DAILY oxyBUTYnin chloride [Ditropan] 5 mg PO DAILY Cetirizine HCl [Zyrtec] 10 mg PO DAILY Aspirin EC [Ecotrin Low Dose] 81 mg PO DAILY Discharge Medication List Montelukast [Singulair] 10 mg PO DAILY 09/17/18 [History] lisinopriL [Zestril] 10 mg PO DAILY 09/17/18 [History] traMADol HCL [Ultram] 50 mg PO TID PRN 09/17/18 [History] oxyBUTYnin chloride [Ditropan] 5 mg PO DAILY 01/04/23 [History] Aspirin EC [Ecotrin Low Dose] 81 mg PO DAILY 06/22/24 [History] Cetirizine HCl [Zyrtec] 10 mg PO DAILY 06/22/24 [History] Lansoprazole 15 mg PO DAILY 06/22/24 [History] Lovastatin [Mevacor] 20 mg PO DAILY 06/22/24 [History] cefUROXime axetiL [Ceftin] 500 mg PO BID 10 Days #20 tab 06/24/24 [Rx] metroNIDAZOLE [Flagyl] 500 mg PO TID #30 tab 06/24/24 [Rx] Follow up Appointment(s)/Referral(s): Eric Cooney DO [Primary Care Provider] - 1-2 days Jesscia Anderson MD [STAFF PHYSICIAN] - 07/09/24 (Needs referral from PCP) Discharge Disposition: HOME SELF-CARE
--- NOTE | 2024-06-26 08:34 | P.PN ---
Subjective Progress Note Date: 06/24/24 Principal diagnosis: Reason for follow-up is colitis Patient is a 73-year-old female with a past medical history significant for hypertension hyperlipidemia reflux asthma right breast cancer, colitis presented to the hospital with abdominal pain diarrhea and hematochezia with abnormal CT suggestive of colitis involving the transverse and descending colon. On today's evaluation that is 06/24/2024, Patient is afebrile patient is currently on room air and denies having any shortness of breath, the patient denies any chest pain or cough, the patient denies any nausea vomiting did not have any abdominal pain and no diarrhea, mention feeling better wants to go home. No new labs were obtained today stool for C. difficile negative stool cultures pending Objective - Vital Signs Vital signs: Vital Signs Temp 98.3 F 06/24/24 07:00 Pulse 70 06/24/24 08:00 Resp 16 06/24/24 08:00 BP 155/79 06/24/24 07:00 Pulse Ox 100 06/24/24 07:00 FiO2 Intake & Output 06/23/24 06/24/24 06/24/24 18:59 06:59 18:59 Intake Total 118 118 Output Total 3 Balance 115 118 Intake: Oral 118 118 Output: Stool 3 Other: Voiding Method Toilet Toilet # Voids 3 1 - Exam GENERAL DESCRIPTION: An elderly female Lying in bed in no distress RESPIRATORY SYSTEM: Unlabored breathing , decreased breath sounds at bases HEART: S1 S2 regular rate and rhythm , ABDOMEN: Soft , no tenderness EXTREMITIES: No edema feet - Labs CBC & Chem 7: 06/23/24 02:55 06/21/24 19:38 Assessment and Plan (1) Colitis Status: Acute Code(s): K52.9 - NONINFECTIVE GASTROENTERITIS AND COLITIS, UNSPECIFIED SNOMED Code(s): 74676787 (2) Leukocytosis Status: Acute Code(s): D72.829 - ELEVATED WHITE BLOOD CELL COUNT, UNSPECIFIED SNOMED Code(s): 713917270 Plan: 1patient presented to hospital with abdominal pain diarrhea and now with evidence of hematochezia abnormal CT concerning for colitis questionably ischemic versus infectious colitis. 2 stool for C. difficile negative, stool culture currently pending 3patient did have clinical improvement, patient will finish therapy with oral Ceftin and Flagyl prescription has been sent to the pharmacy, question concern answered Dictation was produced using [employer] software. please excuse any grammatical, word or spelling errors. Time with Patient: Less than 30
== END 2024-06-24 16:03 | disposition home or self-care (01) ==
LOC: EC 18:51 → 6NMEDSUR 06-22 02:47
PROVIDERS: ADMIT Family Medicine; ATTEND Family Medicine
DX: K52.9 Noninfective gastroenteritis and colitis, unspecified (principal); I11.9 Hypertensive heart disease without heart failure; E78.5 Hyperlipidemia, unspecified; E86.0 Dehydration; I83.90 Asymptomatic varicose veins of unspecified lower extremity; K21.9 Gastro-esophageal reflux disease without esophagitis; J45.909 Unspecified asthma, uncomplicated; R79.89 Other specified abnormal findings of blood chemistry; R94.4 Abnormal results of kidney function studies; E66.9 Obesity, unspecified; Z68.25 Body mass index [BMI] 25.0-25.9, adult; Z79.82 Long term (current) use of aspirin; Z79.899 Other long term (current) drug therapy; Z91.018 Allergy to other foods; Z87.891 Personal history of nicotine dependence; Z85.3 Personal history of malignant neoplasm of breast
CPT/HCPCS: 36415; 74177; 80053; 83605; 85025; 85610; 85730; 87045; 87046; 87324; 93005; 96361; 96365; 96366; 96367; 96375; 96376; 99285

== ENCOUNTER → 2024-12-31 | Outpatient (CLI) | payer MEDICARE ==
[2024-12-31 07:31] LABS: African American GFR (CKD) 88 (>60 ml/min/1.73 sqM); Blood Urea Nitrogen 22 mg/dL (7-17); Non-African American GFR(CKD) 77 (>60 ml/min/1.73 sqM)
--- NOTE | 2024-12-31 08:04 | CT ---
EXAMINATION TYPE: CT soft tissue neck w con DATE OF EXAM: 12/31/2024 7:45 AM COMPARISON: 12/19/2013 CLINICAL INDICATION: Female, 74 years old with history of R22.1 LOCALIZED SWELLING MASS LUMP NECK; PH H, lump in left neck TECHNIQUE: Standard enhanced CT of the neck. Axial sections with coronal and sagittal reformats were obtained. Contrast used:75 mL of Isovue 300 with IV Contrast, (None if empty) Oral contrast used: (None if empty) CT DLP: 259.6 mGycm, Automated exposure control for dose reduction was used. FINDINGS: Brain: Visualized portions are grossly unremarkable. Orbits: Unremarkable Sinuses: Grossly unremarkable. Spaces of the neck: Clear and symmetric. Palpable marker correlates with superficial left parotid gla nd lesion measuring 16 x 10 mm previously measuring 10 x 7 mm on 12/19/2013. Musculoskeletal: No acute osseous pathology. Lymph nodes: Multiple nonenlarged lymph nodes are seen along both anterior chains of the neck. Vascular structures: Visualized major arteries are patent without evidence of aneurysm. Thoracic Inlet/airway: Airway is patent. The lung apices are clear. Soft tissues/Thyroid: Thyroid and remainder of the soft tissues are unremarkable. Other: none. IMPRESSION: Palpable marker correlates with superficial left parotid gland lesion measuring 16 x 10 mm previously measuring 10 x 7 mm on 12/19/2013. Findings could represent Warthin gland tumor versus pleomorphic sabra noma versus enlarged intraglandular lymph node. [facility], , 12/31/2024 8:01 AM
== END | disposition home or self-care (01) ==
LOC: RADCTMAIN 06:41
PROVIDERS: ATTEND Otolaryngology
DX: K11.8 Other diseases of salivary glands (principal); R22.1 Localized swelling, mass and lump, neck
CPT/HCPCS: 82565; 84520; 70491; 36415; Q9967

== ENCOUNTER → 2025-03-20 | Outpatient (CLI) | payer MEDICARE ==
--- NOTE | 2025-03-25 13:43 | CT ---
EXAMINATION TYPE: CT soft tissue neck w con DATE OF EXAM: 03/20/2025 11:30 AM COMPARISON: None. CLINICAL INDICATION: Female, 74 years old with history of K11.8 MASS LEFT PAROTID GLAND, Left sided p arotid gland mass TECHNIQUE: Axial images at 3 mm thick sections. Reconstructed images in the coronal plane and sagitt al plane are reviewed. Contrast used:100ml mL of Isovue 300 with IV Contrast, (none if empty) Oral contrast used: (none if empty) CT DLP: 377 mGycm, Automated exposure control for dose reduction was used. FINDINGS: Limited CT sections are obtained the lung apices. The lung apices appear clear. CT neck: The torus tubarius and fossa of Rosenmuller are normal. [employer] spaces are normal. Para nasal sinuses and mastoid air cells are clear. Parotid glands appear normal and symmetrical. Superficial to the lateral posterior left parotid gland is a slightly hyperdense 1.4 cm oval density with central hypodensity. Finding appears compatible with an enlarged lymph node. A second smaller ly mph node is likely present. Submandibular glands, are normal. Parapharyngeal spaces are normal. The hypopharynx appears within normal limits. Vocal cord level appear symmetrical. Thyroid as visualized is normal. No suspicious osseous change. Degenerative disc changes noted at C6-7. Milder disc changes are presen t within the cervical spine IMPRESSION: 1. 1.4 cm hyperdense oval in the lateral left subcutaneous tissues likely as there is an abnormal lym ph node. No additional suspicious adenopathy identified. Additional workup recommended. [facility], , 03/25/2025 1:40 PM
== END | disposition home or self-care (01) ==
LOC: RADCTMAIN 10:02
PROVIDERS: ATTEND Otolaryngology
DX: K11.8 Other diseases of salivary glands (principal)
CPT/HCPCS: 70491; Q9967